=== PATIENT | female | born 1950 | race Asian ===

== ENCOUNTER 2024-05-08 10:57 | Inpatient (IN) | payer OTHER, MEDICAID ==
[~2024-05-08] VITALS: Ht 160 cm; Wt 57.3 kg
[~2024-05-08 10:57] MED LIST: AMLO-257 PO; ATOR10TA PO; ATOR10TA69 PO; CLON1PAT13 TD; DIVA-112 PO; DIVA-153 PO; HALO10TA21 PO; HALO5VIA16 IM; LITH300C3 PO; LURA60TA PO; OLAN5TAB30 PO; RISP3TAB35 PO
[2024-05-08] MEDS ORDERED: LORazepam 2 MG TABLET PO PRN (17:00)
[2024-05-08] MEDS ORDERED: ZOLPIDEM TARTRATE 10 MG TABLET PO PRN (17:00)
[2024-05-08 23:43] VITALS: BP 150/77; PULSE 88; RESP 18; TEMP 98.3; O2SAT 97
[2024-05-09] MEDS ORDERED: OMEPRAZOLE 20 MG CAPSULE PO PRN (00:30)
[2024-05-09] MEDS ORDERED: IBUPROFEN 600 MG TABLET PO PRN (00:30)
[2024-05-09] MEDS ORDERED: MAGNESIUM HYDROXIDE SUSPENSION 30 ML UDCUP PO PRN ×2 (00:30→09:15)
[2024-05-09] MEDS ORDERED: BENZOCAINE/MENTHOL [CEPACOL] LOZENGE PO PRN (00:30)
[2024-05-09] MEDS ORDERED: LOPERAMIDE HCL 2 MG CAPSULE PO PRN (00:30)
[2024-05-09] MEDS ORDERED: ONDANSETRON 4 MG TABLET PO PRN (00:30)
[2024-05-09] MEDS ORDERED: BACITRACIN 28 GM OINTMENT TP PRN (00:30)
[2024-05-09] MEDS ORDERED: CloNIDine HCL 0.1 MG TABLET PO PRN (00:30)
[2024-05-09] MEDS ORDERED: ALBUTEROL SULFATE HFA 90 MCG/PUFF 8 GM INHALER IH PRN (00:30)
[2024-05-09] MEDS ORDERED: DOCUSATE SODIUM 100 MG CAPSULE PO PRN (00:30)
[2024-05-09] MEDS ORDERED: MAG HYDROX/ALUMINUM HYD/SIMETH ES 30 ML SUSPENSION UDCUP PO PRN ×2 (00:30→09:15)
[2024-05-09 07:43] LABS: BASOPHILS % (AUTO) 0.9 % (0.0-2.0); EOSINOPHILS % (AUTO) 2.4 % (1.0-6.0); HEMATOCRIT 37.1 % (36-46); HEMOGLOBIN 12.2 g/dL (12.0-16.0); LYMPHOCYTES % (AUTO) 38.9 % (22.0-44.0); MEAN CORPUSCULAR HEMOGLOBIN 32.7 pg (26.0-34.0); MEAN CORPUSCULAR HGB CONC 32.8 G/dL (31.0-37.0); MEAN CORPUSCULAR VOLUME 100 fL (80-100); MONOCYTES # (AUTO) 0.4 K/uL (0.1-1.0); MONOCYTES % (AUTO) 5.7 % (2.0-9.0); NEUTROPHILS # (AUTO) 4.1 K/uL (1.8-7.7); NEUTROPHILS % (AUTO) 52.1 % (40.0-70.0); PLATELET COUNT (AUTO) 137 K/uL (150-450); RED BLOOD CELL COUNT(AUTO) 3.72 MIL/uL (4.00-5.20); RED CELL DISTRIBUTION WIDTH 15.8 % (11.5-14.5); WHITE BLOOD COUNT (AUTO) 7.8 K/uL (4.5-11.0)
[2024-05-09 07:50] LABS: CALCIUM, TOTAL 9.1 mg/dL (8.8-10.5); CREATININE 1.65 mg/dL (0.60-1.30); POTASSIUM 4.1 mmol/L (3.5-5.1)
[2024-05-09 07:59] LABS: HEMOGLOBIN A1C 5.6 % (3.8-5.6)
[2024-05-09 08:04] LABS: ALBUMIN 2.9 g/dL (3.4-5.0); BILIRUBIN,TOTAL 0.4 mg/dL (0.1-1.0); CHOL/HDL RATIO 2.4 (3.9-5.7); THYROID STIMULATING HORMONE 1.37 uIU/mL (0.36-3.74); TOTAL PROTEIN, SERUM 7.1 g/dL (6.4-8.2)
[2024-05-09] MEDS ORDERED: BREXPIPRAZOLE 0.25 MG TABLET PO PRN (09:15)
[2024-05-09] MEDS ORDERED: PROMETHAZINE HCL 25 MG TABLET PO PRN (09:15)
[2024-05-09] MEDS ORDERED: HydrOXYzine PAMOATE 50 MG CAPSULE PO PRN (09:15)
[2024-05-09] MEDS ORDERED: GuaiFENesin/D-METHORPHAN [SUGAR-FREE] 200-20MG/10 ML SYRUP UDCUP PO PRN (09:15)
[2024-05-09] MEDS: AmLODIPine BESYLATE 5 MG TABLET PO SCH (10:33)
[2024-05-09] MEDS: CEPHALEXIN MONOHYDRATE 500 MG CAPSULE PO SCH (10:33)
[2024-05-09 14:56] VITALS: BP 121/70; PULSE 90; RESP 17; TEMP 97.7; O2SAT 98
[2024-05-09] MEDS: THIAMINE 100 MG TABLET PO SCH (18:19)
[2024-05-09] MEDS: MELATONIN 5 MG TABLET PO SCH (21:12)
[2024-05-09] MEDS: BREXPIPRAZOLE 0.25 MG TABLET PO SCH (21:12)
[2024-05-09 23:04] VITALS: BP 124/66; PULSE 87; RESP 17; TEMP 96.9; O2SAT 96
[2024-05-10 07:45] LABS: CHOL/HDL RATIO 2.4 (3.9-5.7); FREE T4 (FREE THYROXINE) 1.43 ng/dL (0.76-1.46); THYROID STIMULATING HORMONE 1.99 uIU/mL (0.36-3.74)
[2024-05-10] MEDS: FOLIC ACID 1 MG TABLET PO SCH (08:55)
[2024-05-10] MEDS: MULTIVITAMINS WITH MINERALS, THERAPEUTIC TABLET PO SCH (08:55)
[2024-05-10 10:12] VITALS: RESP 18
[2024-05-10 16:34] VITALS: BP 124/69; PULSE 93; RESP 18
[2024-05-10 22:23] VITALS: RESP 18; TEMP 96.1
[2024-05-11 11:29] VITALS: BP 127/74; PULSE 81; RESP 17; TEMP 97.7; O2SAT 98
[2024-05-11 23:22] VITALS: BP 151/77; PULSE 87; RESP 18; TEMP 98.2; O2SAT 97
[2024-05-12] MEDS: ZOLPIDEM TARTRATE 10 MG TABLET PO PRN (00:04)
[2024-05-12] MEDS: OLANZapine 5 MG RAPDIS TABLET PO PRN (00:04)
[2024-05-12 09:37] VITALS: BP 127/43; PULSE 75; RESP 18; TEMP 97.4; O2SAT 99
[2024-05-12 21:13] VITALS: BP 132/84; PULSE 84; RESP 18; TEMP 97.4; O2SAT 96
[2024-05-13 10:37] VITALS: BP 139/76; PULSE 81; RESP 17; TEMP 97.9; O2SAT 100
[2024-05-13 22:03] VITALS: BP 136/83; PULSE 100; RESP 18; TEMP 97.6; O2SAT 100
[2024-05-14 08:45] VITALS: BP 104/65; PULSE 79; RESP 17; TEMP 97.8; O2SAT 98
[2024-05-14 23:00] VITALS: RESP 18
[2024-05-15 16:18] VITALS: BP 141/73; PULSE 86; RESP 18; TEMP 97.1
[2024-05-15] MEDS: HALOPERIDOL LACTATE 5 MG/ML VIAL IM PRN (17:00)
[2024-05-15] MEDS: BREXPIPRAZOLE 0.25 MG TABLET PO SCH (17:00)
[2024-05-15] MEDS: VALPROIC ACID 250 MG/5 ML SOLUTION UDCUP PO SCH (21:00)
[2024-05-15 23:25] VITALS: BP 133/84; PULSE 82; RESP 18; TEMP 97.1; O2SAT 99
[2024-05-16 08:55] VITALS: RESP 18; TEMP 97
[2024-05-16] MEDS: ACETAMINOPHEN 325 MG TABLET PO PRN (12:23)
[2024-05-16] MEDS ORDERED: OLANZapine 2.5 MG TABLET PO PRN (14:45)
[2024-05-16] MEDS: OLANZapine 2.5 MG TABLET PO SCH (16:01)
[2024-05-16] MEDS: VALPROIC ACID 250 MG/5 ML SOLUTION UDCUP PO SCH (16:01)
[2024-05-16 21:41] VITALS: RESP 18
[2024-05-17 08:41] VITALS: BP 144/81; PULSE 81; RESP 18; TEMP 97.7; O2SAT 99
[2024-05-17] MEDS ORDERED: HALOPERIDOL LACTATE 5 MG/ML VIAL IM PRN (12:00)
[2024-05-17 17:50] VITALS: BP 137/77; PULSE 95; RESP 17; O2SAT 100
[2024-05-17] MEDS: MEMANTINE HCL 5 MG TABLET PO SCH (17:53)
[2024-05-17 21:19] VITALS: BP 143/89; PULSE 92; RESP 18; TEMP 97.8; O2SAT 100
[2024-05-17] MEDS: HALOPERIDOL 5 MG TABLET PO SCH (21:48)
[2024-05-17] MEDS: DONEPEZIL HCL 10 MG TABLET PO SCH (21:48)
[2024-05-18 10:54] VITALS: BP 137/80; PULSE 96; RESP 18; TEMP 97.3; O2SAT 98
[2024-05-18 17:50] VITALS: BP 138/80; PULSE 93; RESP 17; O2SAT 98
[2024-05-18 22:12] VITALS: RESP 20
[2024-05-19 12:54] VITALS: BP 128/57; PULSE 81; RESP 16; TEMP 98.1; O2SAT 96
[2024-05-19] MEDS: VALPROIC ACID 250 MG/5 ML SOLUTION UDCUP PO SCH (21:00)
[2024-05-19 21:46] VITALS: RESP 18
[2024-05-19] MEDS: LORazepam 2 MG TABLET PO PRN (22:14)
[2024-05-20 10:14] VITALS: BP 124/73; PULSE 109; RESP 17; TEMP 97; O2SAT 96
[2024-05-20 21:06] VITALS: BP 123/85; PULSE 93; RESP 18; TEMP 98.2; O2SAT 99
[2024-05-21 17:00] VITALS: BP 110/67; PULSE 82; RESP 18; TEMP 97; O2SAT 95
[2024-05-21 20:14] VITALS: BP 129/77; PULSE 89; RESP 18; TEMP 98; O2SAT 97
[2024-05-21] MEDS: HALOPERIDOL 10 MG TABLET PO SCH (21:34)
[2024-05-22 10:28] VITALS: BP 119/63; PULSE 63; RESP 18; TEMP 97.1; O2SAT 97
[2024-05-22 21:23] VITALS: BP 118/67; PULSE 75; RESP 16; TEMP 97.8; O2SAT 97
[2024-05-22] MEDS: HALOPERIDOL 5 MG TABLET PO SCH (21:27)
[2024-05-23 08:30] VITALS: BP 123/71; PULSE 87; RESP 18; TEMP 98.1; O2SAT 95
[2024-05-23] MEDS: HALOPERIDOL 10 MG TABLET PO SCH (21:00)
[2024-05-23 21:31] VITALS: BP 137/78; PULSE 103; RESP 18; TEMP 97.3; O2SAT 97
[2024-05-23] MEDS: HALOPERIDOL LACTATE 5 MG/ML VIAL IM PRN (21:32)
[2024-05-24 11:17] VITALS: RESP 18
[2024-05-24 21:28] VITALS: BP 127/72; PULSE 98; RESP 18; TEMP 97.9; O2SAT 96
[2024-05-25 09:59] VITALS: BP 136/73; PULSE 82; RESP 18; TEMP 97.7; O2SAT 98
[2024-05-25 21:08] VITALS: BP 124/71; PULSE 84; RESP 19; TEMP 97.6; O2SAT 98
[2024-05-26 08:30] VITALS: BP 123/69; PULSE 82; RESP 16; TEMP 97.3; O2SAT 99
[2024-05-26 20:24] VITALS: BP 145/80; RESP 17; TEMP 98; O2SAT 98
[2024-05-27 09:00] VITALS: BP 113/60; PULSE 67; RESP 19; TEMP 98.1; O2SAT 100
[2024-05-27 21:00] VITALS: BP 143/71; PULSE 83; RESP 19; TEMP 97; O2SAT 97
[2024-05-28] MEDS: HALOPERIDOL 5 MG TABLET PO SCH (13:00)
[2024-05-28] MEDS ORDERED: HALOPERIDOL LACTATE 5 MG/ML VIAL IM PRN (13:00)
[2024-05-28 13:05] VITALS: BP 106/63; PULSE 84; RESP 18; TEMP 97.7; O2SAT 99
[2024-05-28 21:48] VITALS: BP 113/63; PULSE 76; RESP 18; TEMP 97.5; O2SAT 100
[2024-05-29 09:18] VITALS: BP 120/77; PULSE 74; RESP 18; TEMP 98; O2SAT 100
[2024-05-29 23:29] VITALS: RESP 18
[2024-05-30 10:40] VITALS: BP 132/79; PULSE 83; RESP 16; TEMP 98; O2SAT 96
[2024-05-30 23:00] VITALS: BP 146/76; PULSE 80; RESP 16; TEMP 98; O2SAT 97
[2024-05-31 09:07] VITALS: BP 109/64; PULSE 71; RESP 17; TEMP 97.8; O2SAT 100
[2024-05-31 22:23] VITALS: BP 117/61; PULSE 59; RESP 18; TEMP 97.5; O2SAT 99
[2024-06-01 09:04] VITALS: BP 111/76; PULSE 75; RESP 18; TEMP 98; O2SAT 99
[2024-06-01 20:49] VITALS: BP 106/61; PULSE 69; RESP 19; TEMP 97.4; O2SAT 100
[2024-06-02 08:30] VITALS: BP 116/65; PULSE 86; RESP 18; TEMP 97.7; O2SAT 98
[2024-06-02 20:36] VITALS: BP 120/78; PULSE 82; RESP 19; TEMP 97.2; O2SAT 98
[2024-06-03 09:28] VITALS: BP 113/68; PULSE 68; RESP 16; TEMP 93.4; O2SAT 99
[2024-06-03 20:47] VITALS: BP 139/75; PULSE 74; RESP 18; TEMP 97.8; O2SAT 97
[2024-06-04 09:37] VITALS: BP 125/64; PULSE 64; RESP 18; TEMP 97; O2SAT 100
[2024-06-04 20:51] VITALS: BP 121/78; PULSE 80; RESP 18; TEMP 97.7; O2SAT 100
[2024-06-05 11:29] VITALS: BP 131/87; PULSE 74; RESP 19; TEMP 97.9; O2SAT 100
[2024-06-05] MEDS: HALOPERIDOL 1 MG TABLET PO SCH (13:00)
[2024-06-05] MEDS: HALOPERIDOL LACTATE 5 MG/ML VIAL IM PRN (13:59)
[2024-06-05 20:30] VITALS: RESP 18; TEMP 97.7
[2024-06-06 08:00] VITALS: BP 115/64; PULSE 70; RESP 18; TEMP 97.5
[2024-06-06 20:54] VITALS: BP 129/64; PULSE 67; RESP 18; TEMP 98
[2024-06-07 08:30] VITALS: BP 135/69; PULSE 82; RESP 18; TEMP 97; O2SAT 98
[2024-06-07 16:41] VITALS: BP 116/57; PULSE 74; RESP 18
[2024-06-07 21:29] VITALS: RESP 18
[2024-06-08 08:02] VITALS: RESP 18
[2024-06-08 18:00] VITALS: BP 121/73; PULSE 63; RESP 18; TEMP 98.1
[2024-06-08 21:10] VITALS: RESP 18
[2024-06-09 08:02] VITALS: RESP 18
[2024-06-09 20:06] VITALS: RESP 18
[2024-06-10 09:52] VITALS: BP 122/67; PULSE 83; RESP 20; TEMP 96.3; O2SAT 99
[2024-06-10 20:21] VITALS: BP 123/71; PULSE 85; RESP 18; TEMP 97.9
[2024-06-11 08:30] VITALS: BP 123/68; PULSE 89; RESP 17; TEMP 97.3; O2SAT 100
[2024-06-11] MEDS: TUBERCULIN, PURIFIED PROTEIN DERIVATIVE 5 TU/0.1 ML SYRINGE ID ONE (12:54)
[2024-06-11 21:03] VITALS: TEMP 97.7
[2024-06-12 09:33] VITALS: BP 126/71; PULSE 80; RESP 17; TEMP 97.2; O2SAT 99
[2024-06-12 21:20] VITALS: PULSE 82; RESP 18; TEMP 97.5
[2024-06-13 09:07] VITALS: BP 120/72; PULSE 84; RESP 18; TEMP 97.7; O2SAT 98
[2024-06-13 20:30] VITALS: BP 122/66; PULSE 81; RESP 18; TEMP 98.3
[2024-06-14 08:52] VITALS: BP 114/71; PULSE 90; RESP 18; TEMP 97.9; O2SAT 97
[2024-06-14 16:55] VITALS: BP 126/80; PULSE 89; RESP 18; O2SAT 98
[2024-06-14 20:38] VITALS: BP 122/62; PULSE 63; RESP 18; TEMP 97.5; O2SAT 98
[2024-06-15 09:46] VITALS: BP 130/76; PULSE 78; RESP 17; TEMP 98.1; O2SAT 98
[2024-06-15 09:51] VITALS: BP 130/76; PULSE 75; RESP 18; TEMP 98.1; O2SAT 98
[2024-06-15 21:06] VITALS: BP 123/72; PULSE 85; RESP 17; TEMP 97.6; O2SAT 97
[2024-06-16 09:51] VITALS: BP 101/70; PULSE 100; RESP 19; TEMP 97; O2SAT 96
[2024-06-16 20:31] VITALS: BP 124/61; PULSE 83; RESP 20; TEMP 97.9; O2SAT 98
[2024-06-17 08:46] VITALS: BP 119/67; PULSE 82; RESP 18; TEMP 97.6; O2SAT 100
[2024-06-17 21:08] VITALS: BP 131/68; PULSE 78; RESP 18; TEMP 97.7; O2SAT 100
[2024-06-18 12:42] VITALS: BP 131/68; PULSE 78; RESP 17; TEMP 97.7; O2SAT 96
[2024-06-18 21:10] VITALS: BP 126/63; PULSE 80; RESP 18; TEMP 97.1; O2SAT 98
[2024-06-19 10:05] VITALS: BP 115/94; PULSE 74; RESP 18; TEMP 97.5; O2SAT 98
[2024-06-19 21:01] VITALS: BP 122/67; PULSE 81; RESP 18; TEMP 98.4; O2SAT 99
[2024-06-20 09:48] VITALS: BP 130/89; PULSE 78; RESP 16; TEMP 98; O2SAT 96
[2024-06-20 16:39] VITALS: BP 133/69; PULSE 77; RESP 18; O2SAT 97
[2024-06-20 21:29] VITALS: BP 130/74; PULSE 86; RESP 17; TEMP 97.7; O2SAT 97
[2024-06-21 09:59] VITALS: BP 123/67; PULSE 73; RESP 17; TEMP 97.3; O2SAT 100
[2024-06-21 16:05] VITALS: BP 128/75; PULSE 79; RESP 18; O2SAT 97
[2024-06-21 20:36] VITALS: BP 143/66; PULSE 75; RESP 18; TEMP 97.7; O2SAT 97
[2024-06-22 10:40] VITALS: BP 125/75; PULSE 78; RESP 18; TEMP 97.8; O2SAT 98
[2024-06-22 16:25] VITALS: BP 129/65; PULSE 69; RESP 18; O2SAT 97
[2024-06-22 22:12] VITALS: BP 145/75; PULSE 81; RESP 19; TEMP 98.1; O2SAT 98
[2024-06-23 08:05] VITALS: BP 110/64; PULSE 60; RESP 18; TEMP 97.4
[2024-06-23 20:40] VITALS: BP 121/77; PULSE 76; RESP 18; TEMP 98.1; O2SAT 100
[2024-06-24 08:31] VITALS: BP 119/75; PULSE 78; RESP 19; TEMP 97.9; O2SAT 97
[2024-06-24 21:12] VITALS: BP 139/75; PULSE 86; RESP 18; TEMP 98; O2SAT 98
[2024-06-25 08:00] VITALS: BP 139/81; PULSE 90; RESP 20; TEMP 98; O2SAT 97
[2024-06-25 21:40] VITALS: BP 119/71; PULSE 90; RESP 18; TEMP 97.5; O2SAT 98
[2024-06-26 08:00] VITALS: BP 131/83; PULSE 86; RESP 17; TEMP 97.6; O2SAT 96
[2024-06-26 20:30] VITALS: BP 130/74; PULSE 86; RESP 17; TEMP 97.7; O2SAT 97
[2024-06-27 08:00] VITALS: BP 111/67; PULSE 80; RESP 18; TEMP 97.7; O2SAT 98
[2024-06-27 20:31] VITALS: BP 110/65; PULSE 92; RESP 18; TEMP 97.9; O2SAT 97
[2024-06-28 13:27] VITALS: BP 112/59; PULSE 84; RESP 18; O2SAT 97
[2024-06-28 21:50] VITALS: BP 131/69; PULSE 87; RESP 18; TEMP 97.8; O2SAT 98
[2024-06-29 10:33] VITALS: BP 101/58; PULSE 78; RESP 18; TEMP 97.5; O2SAT 97
[2024-06-29 20:59] VITALS: BP 116/66; PULSE 81; RESP 20; TEMP 97.8; O2SAT 98
[2024-06-30 08:57] VITALS: BP 125/76; PULSE 97; RESP 18; TEMP 97.2; O2SAT 97
[2024-06-30 23:07] VITALS: BP 125/60; PULSE 85; RESP 18; TEMP 77.8; O2SAT 98
[2024-07-01 09:31] VITALS: BP 102/63; PULSE 86; RESP 19; TEMP 98; O2SAT 98
[2024-07-01 16:45] VITALS: BP 111/62; PULSE 86; RESP 17; TEMP 98.2; O2SAT 96
[2024-07-01 21:46] VITALS: BP 107/53; PULSE 79; RESP 18; TEMP 97.3; O2SAT 97
[2024-07-02 09:00] VITALS: BP 132/78; PULSE 84; RESP 17; TEMP 97.1; O2SAT 97
[2024-07-02] MEDS: HALOPERIDOL 1 MG TABLET PO SCH (17:02)
[2024-07-02 22:10] VITALS: RESP 18
[2024-07-03 08:00] VITALS: BP 124/69; PULSE 82; RESP 18; TEMP 96; O2SAT 95
[2024-07-03 16:34] VITALS: BP 129/71; PULSE 89; RESP 20
[2024-07-03 20:00] VITALS: BP 111/56; PULSE 77; RESP 18; TEMP 98; O2SAT 96
[2024-07-03 21:20] VITALS: BP 128/73; PULSE 84; RESP 18; TEMP 98.1; O2SAT 96
[2024-07-04 10:50] VITALS: BP 142/71; PULSE 87; RESP 20; TEMP 97.8; O2SAT 98
[2024-07-04 16:49] VITALS: BP 135/65; PULSE 89; RESP 18; O2SAT 97
[2024-07-04 20:45] VITALS: BP 109/77; PULSE 73; RESP 18; O2SAT 98
[2024-07-05 11:24] VITALS: BP 111/63; PULSE 75; RESP 18; TEMP 97; O2SAT 98
[2024-07-05 16:25] VITALS: BP 125/69; PULSE 89; RESP 18; O2SAT 97
[2024-07-05 21:25] VITALS: BP 114/72; PULSE 90; RESP 18; TEMP 97.3; O2SAT 95
[2024-07-06 10:23] VITALS: BP 116/70; PULSE 74; RESP 17; O2SAT 97
[2024-07-06 16:57] VITALS: BP 114/72; PULSE 81; RESP 17; O2SAT 98
[2024-07-06 20:27] VITALS: BP 125/68; PULSE 79; RESP 17; TEMP 97.5; O2SAT 96
[2024-07-07] VITALS (9 sets, daily range): BP systolic 91–129; BP diastolic 54–82; PULSE 55–88; RESP 17–18; TEMP 97.4–98.1; O2SAT 96–100
[2024-07-07] MEDS: LOPERAMIDE HCL 2 MG CAPSULE PO PRN (14:39)
[2024-07-08 08:37] VITALS: BP 131/77; PULSE 89; RESP 17; TEMP 97.6; O2SAT 96
[2024-07-08 09:13] VITALS: BP 131/77; PULSE 89; RESP 17; TEMP 97.6; O2SAT 96
[2024-07-08 20:26] VITALS: BP 102/60; PULSE 73; RESP 18; TEMP 97.9; O2SAT 97
[2024-07-08 20:29] VITALS: BP 102/60; PULSE 73; RESP 18; TEMP 97.9; O2SAT 97
[2024-07-09 09:48] VITALS: BP 111/66; PULSE 74; RESP 16; TEMP 98; O2SAT 95
[2024-07-09 21:12] VITALS: BP 104/59; PULSE 95; RESP 18; TEMP 98.2; O2SAT 95
[2024-07-09 21:15] VITALS: BP 104/59; PULSE 95; RESP 18; TEMP 98.2; O2SAT 95
[2024-07-10 09:16] VITALS: BP 121/66; PULSE 74; RESP 17; TEMP 98; O2SAT 98
[2024-07-10 10:02] VITALS: BP 121/66; PULSE 74; RESP 17; TEMP 96.6; O2SAT 98
[2024-07-10 21:04] VITALS: BP 110/58; PULSE 73; RESP 18; TEMP 97.4; O2SAT 97
[2024-07-11 13:40] VITALS: BP 119/71; PULSE 77; PULSE 98; RESP 18; TEMP 98.8; O2SAT 98; O2SAT 99
[2024-07-11 22:02] VITALS: BP 126/83; PULSE 90; RESP 18; TEMP 98; O2SAT 97
[2024-07-11 22:04] VITALS: BP 126/83; PULSE 98; RESP 18; TEMP 98.8; O2SAT 98
[2024-07-12 10:27] VITALS: BP 116/65; PULSE 74; RESP 18; TEMP 97.9; O2SAT 96
[2024-07-12 18:15] VITALS: BP 114/72; PULSE 76; RESP 18; O2SAT 98
[2024-07-12 20:42] VITALS: BP 113/65; PULSE 77; RESP 18; TEMP 97.1; O2SAT 95
[2024-07-12 23:28] VITALS: BP 113/65; PULSE 77; RESP 18; TEMP 97.1; O2SAT 96
[2024-07-13 11:18] VITALS: BP 142/87; PULSE 87; RESP 16; TEMP 98.1; O2SAT 95
[2024-07-13 20:10] VITALS: BP 102/56; PULSE 79; RESP 18; TEMP 97.1; O2SAT 98
[2024-07-14 13:19] VITALS: BP 115/63; PULSE 83; RESP 18; TEMP 97.2; O2SAT 95
[2024-07-14 20:56] VITALS: BP 115/57; PULSE 79; RESP 18; TEMP 97.9; O2SAT 99
[2024-07-15 10:58] VITALS: BP 109/62; PULSE 81; RESP 18; TEMP 97.3; O2SAT 97
[2024-07-15 22:01] VITALS: BP 106/58; PULSE 78; RESP 18; TEMP 97.7; O2SAT 98
[2024-07-16 08:00] VITALS: BP 96/45; PULSE 82; RESP 19; TEMP 97.2; O2SAT 96
[2024-07-17 00:19] VITALS: BP 118/65; PULSE 83; RESP 16; TEMP 98.6; O2SAT 95
[2024-07-17 11:32] VITALS: BP 118/68; PULSE 77; RESP 18; TEMP 98.2; O2SAT 94
[2024-07-17 21:08] VITALS: BP 109/59; PULSE 79; RESP 18; TEMP 97
[2024-07-18 10:41] VITALS: BP 143/80; PULSE 82; RESP 18; TEMP 97; O2SAT 98
[2024-07-18 21:19] VITALS: BP 118/55; PULSE 100; RESP 20; TEMP 97.8
[2024-07-19 09:31] VITALS: BP 114/67; PULSE 74; RESP 16; TEMP 97.7
[2024-07-19 16:40] VITALS: BP 106/62; PULSE 66
[2024-07-19 20:35] VITALS: BP 99/60; PULSE 79; RESP 17; TEMP 97.9
[2024-07-20 10:32] VITALS: BP 148/74; PULSE 86; RESP 16; TEMP 97.1; O2SAT 97
[2024-07-20 21:26] VITALS: BP 112/69; PULSE 85; RESP 18; TEMP 97.4; O2SAT 99
[2024-07-21 09:34] VITALS: BP 123/95; PULSE 76; RESP 16; TEMP 97.7; O2SAT 98
[2024-07-21 17:27] VITALS: BP 126/83; PULSE 84; RESP 17; TEMP 98.1; O2SAT 97
[2024-07-21 20:27] VITALS: BP 117/73; PULSE 80; RESP 18; TEMP 97.8
[2024-07-21] MEDS: HALOPERIDOL 1 MG TABLET PO SCH (20:44)
[2024-07-22 10:12] VITALS: BP 98/69; PULSE 100; RESP 18; TEMP 97.8; O2SAT 100
[2024-07-22 16:11] VITALS: BP 121/70; PULSE 95; RESP 17; O2SAT 97
[2024-07-22 20:54] VITALS: BP 135/81; PULSE 98; RESP 18; TEMP 98; O2SAT 98
[2024-07-23] MEDS: HALOPERIDOL 1 MG TABLET PO SCH (08:22)
[2024-07-23 08:59] VITALS: BP 85/43; PULSE 83; RESP 18; TEMP 97; O2SAT 95
[2024-07-23 10:13] VITALS: BP 120/68; PULSE 85
[2024-07-23 21:51] VITALS: BP 132/69; PULSE 89; RESP 18; TEMP 97.9; O2SAT 100
[2024-07-24 08:49] VITALS: BP 111/60; PULSE 70; RESP 17; TEMP 97.5; O2SAT 98
[2024-07-24 20:06] VITALS: BP 110/66; PULSE 83; RESP 18; TEMP 96.8; O2SAT 97
[2024-07-25 09:05] VITALS: BP 129/77; PULSE 86; RESP 18; TEMP 97.4; O2SAT 98
[2024-07-25 20:15] VITALS: BP 100/64; PULSE 84; RESP 17; TEMP 97.7; O2SAT 98
[2024-07-26 09:00] VITALS: BP 95/63; PULSE 81; RESP 17; TEMP 97.1; O2SAT 100
[2024-07-26] MEDS: AMANTADINE HCL 100 MG CAPSULE PO SCH (09:38)
[2024-07-26 18:10] VITALS: BP 114/72; PULSE 65; RESP 18
[2024-07-26 20:30] VITALS: BP 116/72; PULSE 74; RESP 19; TEMP 97.4; O2SAT 98
[2024-07-27 09:22] VITALS: BP 126/74; PULSE 83; RESP 16; TEMP 97; O2SAT 98
[2024-07-27 16:01] VITALS: BP 106/65; PULSE 79; RESP 18; O2SAT 97
[2024-07-27 22:10] VITALS: BP 107/62; PULSE 71; RESP 17; TEMP 97.1; O2SAT 96
[2024-07-28 10:18] VITALS: BP 117/76; PULSE 85; RESP 18; TEMP 97.6; O2SAT 98
[2024-07-28] MEDS: HALOPERIDOL 1 MG TABLET PO SCH (17:04)
[2024-07-28 21:31] VITALS: BP 109/76; PULSE 91; RESP 18; TEMP 98.3; O2SAT 98
[2024-07-29 10:18] VITALS: BP 111/68; PULSE 96; RESP 18; TEMP 97.9; O2SAT 97
[2024-07-29 21:44] VITALS: BP 129/79; PULSE 86; RESP 18; TEMP 98.1; O2SAT 99
[2024-07-30 08:34] VITALS: BP 148/78; PULSE 88; RESP 17; TEMP 97.8; O2SAT 95
[2024-07-30 22:07] VITALS: BP 100/58; PULSE 78; RESP 18; TEMP 97.5; O2SAT 97
[2024-07-31 08:21] VITALS: BP 118/67; PULSE 78; RESP 18; TEMP 97.4; O2SAT 98
[2024-07-31] MEDS: HALOPERIDOL 1 MG TABLET PO SCH (20:58)
[2024-08-01 09:00] VITALS: BP 108/59; PULSE 72; RESP 18; TEMP 97.5; O2SAT 98
[2024-08-01 21:16] VITALS: BP 111/58; PULSE 77; RESP 18; TEMP 98.4; O2SAT 97
[2024-08-02 10:48] VITALS: BP 122/71; PULSE 104; RESP 18; TEMP 97.7; O2SAT 98
[2024-08-02 22:06] VITALS: BP 115/70; PULSE 87; RESP 18; TEMP 97.9; O2SAT 96
[2024-08-03] VITALS (8 sets, daily range): BP systolic 102–150; BP diastolic 71–84; PULSE 96–113; RESP 12–20; TEMP 97.4–98.9; O2SAT 95–98
[2024-08-03 10:33] LABS: EOSINOPHILS % (AUTO) 0 % (1.0-6.0); HEMATOCRIT 37.9 % (36-46); HEMOGLOBIN 12.6 g/dL (12.0-16.0); LYMPHOCYTES # (AUTO) 2.1 K/uL (1.0-4.8); LYMPHOCYTES % (AUTO) 21.9 % (22.0-44.0); MEAN CORPUSCULAR HEMOGLOBIN 31.1 pg (26.0-34.0); MEAN CORPUSCULAR HGB CONC 33.2 G/dL (31.0-37.0); MEAN CORPUSCULAR VOLUME 94 fL (80-100); MONOCYTES # (AUTO) 0.9 K/uL (0.1-1.0); MONOCYTES % (AUTO) 9.5 % (2.0-9.0); NEUTROPHILS # (AUTO) 6.6 K/uL (1.8-7.7); NEUTROPHILS % (AUTO) 67.6 % (40.0-70.0); PLATELET COUNT (AUTO) 185 K/uL (150-450); RED BLOOD CELL COUNT(AUTO) 4.04 MIL/uL (4.00-5.20); RED CELL DISTRIBUTION WIDTH 14.2 % (11.5-14.5); WHITE BLOOD COUNT (AUTO) 9.8 K/uL (4.5-11.0)
[2024-08-03 10:48] LABS: CALCIUM, TOTAL 8.9 mg/dL (8.8-10.5); CREATININE 1.37 mg/dL (0.60-1.30)
[2024-08-03 10:50] LABS: ALBUMIN 3.5 g/dL (3.4-5.0); BILIRUBIN,TOTAL 0.5 mg/dL (0.1-1.0); MAGNESIUM 2.4 mg/dL (1.80-2.40); PHOSPHORUS 3.5 mg/dL (2.5-4.9); TOTAL PROTEIN, SERUM 7.4 g/dL (6.4-8.2)
[2024-08-03] MEDS ORDERED: AMMONIA 1 EA AMP IH ONE (11:01)
[2024-08-03 19:59] LABS: APPEARANCE,URINE CLEAR (CLEAR); BILIRUBIN,URINE NEGATIVE (NEGATIVE); COLOR,URINE YELLOW (YELLOW); GLUCOSE, URINE (UA) NEGATIVE (NEGATIVE); KETONES,URINE NEGATIVE (NEGATIVE); LEUKOCYTE ESTERASE ,URINE MODERATE (NEGATIVE); NITRATE,URINE NEGATIVE (NEGATIVE); OCCULT BLOOD,URINE NEGATIVE (NEGATIVE); PROTEIN,URINE TRACE mg/dL (NEGATIVE); SPECIFIC GRAVITIY, URINE 1.013 (1.003-1.030); UROBILINOGEN,URINE <=1.0 mg/dL (<=1.0)
[2024-08-03 20:07] LABS: BACTERIA,URINE Few /HPF (None Seen); RBC,URINE 0-2 /HPF (0-2); SQUAMOUS EPITHELIAL CELL,UR Few /LPF (None Seen)
[2024-08-03 21:34] LABS: PATHOLOGY REVIEW, DIFF N
[2024-08-04 09:32] VITALS: BP 124/76; PULSE 85; RESP 18; TEMP 97.2; O2SAT 98
[2024-08-04 21:50] VITALS: RESP 18; TEMP 98.1
[2024-08-05] MEDS: HALOPERIDOL 1 MG TABLET PO SCH (09:47)
[2024-08-05 10:40] VITALS: BP 125/71; PULSE 82; RESP 18; TEMP 97.8; O2SAT 98
[2024-08-05] MEDS: HALOPERIDOL LACTATE 5 MG/ML VIAL IM PRN (18:25)
[2024-08-05 20:09] VITALS: RESP 18
[2024-08-06 08:51] VITALS: BP 143/75; PULSE 77; RESP 18; TEMP 97.1; O2SAT 96
[2024-08-06 17:15] VITALS: BP 133/85; PULSE 82; RESP 18
[2024-08-06 22:47] VITALS: BP 134/76; PULSE 86; RESP 18; TEMP 96.9; O2SAT 98
[2024-08-07 08:40] VITALS: BP 126/78; PULSE 82; RESP 17; TEMP 96.8; O2SAT 98
[2024-08-07] MEDS: DIVALPROEX SODIUM 250 MG ER TABLET PO SCH (13:00)
[2024-08-07 20:17] VITALS: BP 132/71; PULSE 92; RESP 17; TEMP 98; O2SAT 98
[2024-08-08 11:27] VITALS: BP 112/75; PULSE 91; RESP 16; TEMP 97.8; O2SAT 97
[2024-08-08 21:53] VITALS: RESP 18; O2SAT 99
[2024-08-09 10:22] VITALS: BP 123/81; PULSE 90; RESP 17; TEMP 98.1; O2SAT 96
[2024-08-09 22:44] VITALS: BP 118/66; PULSE 95; RESP 18; TEMP 97.5; O2SAT 97
[2024-08-10 08:37] VITALS: BP 134/74; PULSE 91; RESP 18; TEMP 97.5; O2SAT 97
[2024-08-10] MEDS: HALOPERIDOL LACTATE 5 MG/ML VIAL IM PRN (13:00)
[2024-08-10 20:19] VITALS: BP 132/73; PULSE 92; RESP 18; TEMP 97.6; O2SAT 98
[2024-08-11 08:43] VITALS: BP 125/61; PULSE 85; RESP 17; TEMP 97.7; O2SAT 95
[2024-08-11] MEDS: HALOPERIDOL 1 MG TABLET PO SCH (17:42)
[2024-08-11 20:21] VITALS: BP 105/70; PULSE 62; RESP 18; TEMP 97.9; O2SAT 98
[2024-08-12 08:52] VITALS: BP 112/59; PULSE 75; RESP 18; TEMP 97.5; O2SAT 97
[2024-08-12 09:00] VITALS: BP 112/59; PULSE 75; RESP 18; TEMP 97.5; O2SAT 97
[2024-08-12 21:25] VITALS: BP 124/77; PULSE 77; RESP 18; TEMP 97.1; O2SAT 98
[2024-08-13 11:28] VITALS: BP 118/67; PULSE 89; RESP 18; TEMP 97.5; O2SAT 99
[2024-08-13 20:00] VITALS: BP 147/87; PULSE 90; RESP 18; TEMP 97.5; O2SAT 99
[2024-08-14 13:16] VITALS: BP 122/70; PULSE 72; RESP 18; TEMP 97; O2SAT 98
[2024-08-14 16:35] VITALS: BP 101/69; PULSE 65; RESP 18; O2SAT 96
[2024-08-14 22:06] VITALS: RESP 18
[2024-08-15 09:30] VITALS: BP 102/68; PULSE 63; RESP 18; TEMP 97.3; O2SAT 96
[2024-08-15] MEDS: BENZTROPINE MESYLATE 0.5 MG TABLET PO ONE (10:56)
[2024-08-15] MEDS: BENZTROPINE MESYLATE 0.5 MG TABLET PO SCH (17:47)
[2024-08-15 19:30] VITALS: BP 101/61; PULSE 78; RESP 18; TEMP 97.3; O2SAT 97
[2024-08-16 08:52] VITALS: BP 134/78; PULSE 67; RESP 16; O2SAT 97
[2024-08-16 16:40] VITALS: BP 118/71; PULSE 78; RESP 18; O2SAT 96
[2024-08-16 20:26] VITALS: BP 122/73; PULSE 89; RESP 18; TEMP 97.3; O2SAT 97
[2024-08-17 10:40] VITALS: BP 124/74; PULSE 78; RESP 14; TEMP 97.9; O2SAT 98
[2024-08-17 20:49] VITALS: RESP 17; TEMP 98.1
[2024-08-18 09:00] VITALS: BP 92/58; PULSE 77; RESP 17; TEMP 98; O2SAT 98
[2024-08-18 09:44] VITALS: BP 92/58; PULSE 77; RESP 18; TEMP 97; O2SAT 98
[2024-08-18 16:21] VITALS: BP 109/58; PULSE 72
[2024-08-18 20:58] VITALS: RESP 18
[2024-08-19 08:30] VITALS: BP 142/73; PULSE 72; RESP 16; TEMP 96.9; O2SAT 99
[2024-08-19] MEDS: LORazepam 2 MG/ML VIAL IM ONE (18:29)
[2024-08-19] MEDS: HALOPERIDOL LACTATE 5 MG/ML VIAL IM ONE (18:31)
[2024-08-19] MEDS: DiphenhydrAMINE HCL 50 MG/ML VIAL IM ONE (18:31)
[2024-08-19 21:39] VITALS: BP 133/71; PULSE 79; RESP 18; TEMP 97.5; O2SAT 99
[2024-08-20] MEDS: HALOPERIDOL 1 MG TABLET PO SCH (09:21)
[2024-08-20 09:44] VITALS: BP 120/60; PULSE 78; RESP 19; TEMP 98.2; O2SAT 97
[2024-08-20 18:24] VITALS: BP 111/70; PULSE 70; RESP 18
[2024-08-20 21:56] VITALS: BP 100/56; PULSE 86; RESP 18; TEMP 97.7; O2SAT 96
[2024-08-21 08:39] VITALS: BP 134/71; PULSE 80; RESP 17; TEMP 98.2; O2SAT 97
[2024-08-21 22:29] VITALS: RESP 18
[2024-08-22 10:55] VITALS: RESP 18; TEMP 97
[2024-08-22 22:01] VITALS: RESP 18
[2024-08-23 11:02] VITALS: BP 110/73; PULSE 93; RESP 20; TEMP 97.4
[2024-08-23 16:28] VITALS: BP 108/69; PULSE 89; RESP 18
[2024-08-23 21:53] VITALS: RESP 18
[2024-08-24 08:26] VITALS: RESP 18
[2024-08-24 21:23] VITALS: BP 125/65; PULSE 89; RESP 18; TEMP 97.7
[2024-08-25 09:54] VITALS: BP 118/71; PULSE 81; RESP 18; TEMP 97.5; O2SAT 98
[2024-08-25 20:37] VITALS: BP 131/76; PULSE 66; RESP 18; TEMP 98.2; O2SAT 97
[2024-08-26 09:08] VITALS: BP 138/76; PULSE 89; RESP 16; TEMP 98.4; O2SAT 98
[2024-08-26 21:47] VITALS: RESP 17
[2024-08-27] MEDS: LORazepam 2 MG/ML VIAL IM ONE (07:13)
[2024-08-27] MEDS: DiphenhydrAMINE HCL 50 MG/ML VIAL IM ONE (07:13)
[2024-08-27] MEDS: HALOPERIDOL LACTATE 5 MG/ML VIAL IM ONE (07:17)
[2024-08-27 08:37] VITALS: BP 116/59; PULSE 79; RESP 17; TEMP 97.6; O2SAT 97
[2024-08-27] MEDS: DIVALPROEX SODIUM 250 MG ER TABLET PO SCH (14:40)
[2024-08-27 22:22] VITALS: RESP 18
[2024-08-28 09:12] VITALS: BP 110/60; PULSE 87; RESP 17; TEMP 97; O2SAT 97
[2024-08-28 17:31] VITALS: BP 105/65; PULSE 89; RESP 18; O2SAT 97
[2024-08-28 20:38] VITALS: BP 108/55; PULSE 76; RESP 18; TEMP 97.8; O2SAT 97
[2024-08-29 09:27] VITALS: BP 126/70; PULSE 86; RESP 16; TEMP 97.7; O2SAT 99
[2024-08-29 16:42] VITALS: BP 123/63; PULSE 89; RESP 18; O2SAT 98
[2024-08-29 22:07] VITALS: RESP 18
[2024-08-30 09:17] VITALS: BP 116/70; PULSE 83; RESP 16; TEMP 96.9; O2SAT 99
[2024-08-30 16:43] VITALS: BP 110/69; PULSE 78; RESP 20; O2SAT 98
[2024-08-30 20:27] VITALS: RESP 18
[2024-08-31 08:40] VITALS: BP 114/67; PULSE 86; RESP 17; TEMP 97.4; O2SAT 99
[2024-08-31 17:37] VITALS: BP 101/62; PULSE 77; RESP 17; O2SAT 100
[2024-08-31 20:31] VITALS: RESP 18
[2024-09-01 13:11] VITALS: BP 137/63; PULSE 72; RESP 16; TEMP 97.7; O2SAT 98
[2024-09-01 20:51] VITALS: BP 115/60; PULSE 78; RESP 18; TEMP 97.5; O2SAT 98
[2024-09-02 09:19] VITALS: BP 129/72; PULSE 81; RESP 16; TEMP 97.3; O2SAT 100
[2024-09-02] MEDS: HALOPERIDOL 1 MG TABLET PO SCH (12:39)
[2024-09-02 17:05] VITALS: BP_SYST 102; BP_SYST 145; BP_DIAS 60; BP_DIAS 85; PULSE 73; PULSE 89; RESP 17; TEMP 97.7; O2SAT 99
[2024-09-02 20:24] VITALS: RESP 18
[2024-09-02] MEDS: HALOPERIDOL 2 MG TABLET PO SCH (21:56)
[2024-09-03 08:05] VITALS: BP 113/67; PULSE 76; RESP 16; TEMP 97.7; O2SAT 100
[2024-09-03 20:00] VITALS: RESP 19
[2024-09-04 12:53] VITALS: BP 130/75; PULSE 77; RESP 18; TEMP 97.8
[2024-09-04 16:45] VITALS: BP 128/82; PULSE 89; RESP 20
[2024-09-04 20:00] VITALS: BP 100/68; PULSE 73; RESP 18; TEMP 97.3
[2024-09-05 09:15] VITALS: BP 131/70; PULSE 75; RESP 17; TEMP 97.4
[2024-09-05 21:00] VITALS: RESP 19
[2024-09-06 09:00] VITALS: PULSE 87; RESP 18; TEMP 97.6; O2SAT 98
[2024-09-06 21:25] VITALS: RESP 18
[2024-09-07 08:38] VITALS: BP 143/80; PULSE 85; RESP 19; TEMP 97.8; O2SAT 100
[2024-09-07 20:27] VITALS: RESP 18
[2024-09-08 10:49] VITALS: BP 126/61; PULSE 65; RESP 19; TEMP 97.9; O2SAT 99
[2024-09-08 21:27] VITALS: BP 118/62; PULSE 76; RESP 18; TEMP 96.9; O2SAT 99
[2024-09-09 09:37] VITALS: BP 117/65; PULSE 68; RESP 18; TEMP 97.2; O2SAT 97
[2024-09-09 17:40] VITALS: BP 117/69; PULSE 73; RESP 18; TEMP 97.5; O2SAT 99
[2024-09-09 23:27] VITALS: BP 99/58; PULSE 74; RESP 18; TEMP 97.9; O2SAT 98
[2024-09-10 08:55] VITALS: BP 130/55; PULSE 83; RESP 18; TEMP 97.5; O2SAT 98
[2024-09-10 16:51] VITALS: BP 130/74; PULSE 82; RESP 18; TEMP 97.9; O2SAT 99
[2024-09-10 20:13] VITALS: BP 119/70; PULSE 66; RESP 16; TEMP 97.6; O2SAT 97
[2024-09-11 08:58] VITALS: BP 142/77; PULSE 84; RESP 17; TEMP 97.5; O2SAT 99
[2024-09-11 17:15] VITALS: BP 119/62; PULSE 75; RESP 18; TEMP 97; O2SAT 98
[2024-09-11 23:00] VITALS: BP 120/65; PULSE 78; RESP 18; TEMP 98.2; O2SAT 98
[2024-09-12 10:14] VITALS: BP 107/61; PULSE 70; RESP 16; TEMP 97.5; O2SAT 98
[2024-09-12 20:31] VITALS: BP 118/76; RESP 18
[2024-09-13] VITALS (10 sets, daily range): BP systolic 98–118; BP diastolic 55–77; PULSE 69–90; RESP 16–18; TEMP 97.6–98.2; O2SAT 98–100
[2024-09-14 00:30] VITALS: BP 106/62; PULSE 74; RESP 18; TEMP 97.6; O2SAT 99
[2024-09-14 01:30] VITALS: BP 110/68; PULSE 68; RESP 18; TEMP 98; O2SAT 98
[2024-09-14 08:20] VITALS: BP 104/60; PULSE 77; RESP 17; TEMP 97.4; O2SAT 97
[2024-09-14 09:36] VITALS: BP 104/60; PULSE 77; RESP 18; TEMP 97.5; O2SAT 97
[2024-09-14 16:58] VITALS: BP 114/70; PULSE 75; RESP 18; TEMP 98; O2SAT 99
[2024-09-14 20:07] VITALS: BP 110/61; PULSE 84; RESP 18; TEMP 97.6; O2SAT 98
[2024-09-15 10:18] VITALS: BP 142/72; PULSE 70; RESP 17; TEMP 97.7; O2SAT 99
[2024-09-15 20:35] VITALS: RESP 18
[2024-09-16 09:04] VITALS: BP 116/67; PULSE 66; RESP 18; TEMP 97.8; O2SAT 99
[2024-09-16 17:38] VITALS: BP 124/74; PULSE 75; RESP 18; TEMP 97.8; O2SAT 98
[2024-09-16 20:06] VITALS: BP 121/64; PULSE 85; RESP 18; TEMP 97.8
[2024-09-17 08:16] VITALS: BP 128/76; PULSE 85; RESP 18; TEMP 97.7; O2SAT 97
[2024-09-17 21:27] VITALS: RESP 18
[2024-09-18 08:56] VITALS: BP 122/65; PULSE 69; RESP 18; TEMP 97.7; O2SAT 100
[2024-09-18 20:35] VITALS: BP 118/71; PULSE 71; RESP 19; TEMP 98; O2SAT 98
[2024-09-19 10:42] VITALS: BP 113/82; PULSE 18; PULSE 78; RESP 20; TEMP 97.4; O2SAT 98
[2024-09-19 16:39] VITALS: BP 129/78; PULSE 85; RESP 18; O2SAT 97
[2024-09-19 20:30] VITALS: RESP 18
[2024-09-20 09:20] VITALS: BP 136/77; PULSE 60; RESP 16; TEMP 97.4; O2SAT 99
[2024-09-20 20:09] VITALS: BP 117/69; PULSE 65; RESP 16; TEMP 97.8; O2SAT 99
[2024-09-21 09:00] VITALS: BP 103/51; PULSE 66; RESP 18; TEMP 97.8; O2SAT 99
[2024-09-21 16:18] VITALS: BP 90/50; PULSE 66
[2024-09-21 20:38] VITALS: BP 105/59; PULSE 72; RESP 18; TEMP 97.8
[2024-09-22 08:00] VITALS: BP 133/70; PULSE 62; RESP 17; TEMP 97.6; O2SAT 99
[2024-09-22 17:07] VITALS: BP 96/53; PULSE 69
[2024-09-22 21:24] VITALS: RESP 18
[2024-09-23 09:00] VITALS: BP 106/56; PULSE 61; RESP 16; TEMP 97.5
[2024-09-23 22:06] VITALS: RESP 17
[2024-09-24 08:40] VITALS: BP 126/74; PULSE 82; RESP 17; TEMP 97.8; O2SAT 98
[2024-09-24 08:46] VITALS: BP 126/74; PULSE 82; RESP 17; TEMP 97.8
[2024-09-24 16:43] VITALS: BP 96/50; PULSE 60; RESP 17; TEMP 97.8; O2SAT 96
[2024-09-24 23:15] VITALS: BP 101/51; PULSE 67; RESP 18; TEMP 97.8; O2SAT 97
[2024-09-25 08:18] LABS: BASOPHILS % (AUTO) 0.5 % (0.0-2.0); HEMOGLOBIN 12.2 g/dL (12.0-16.0); LYMPHOCYTES # (AUTO) 2.7 K/uL (1.0-4.8); LYMPHOCYTES % (AUTO) 34.2 % (22.0-44.0); MEAN CORPUSCULAR HEMOGLOBIN 31.8 pg (26.0-34.0); MEAN CORPUSCULAR HGB CONC 33.1 G/dL (31.0-37.0); MEAN CORPUSCULAR VOLUME 96 fL (80-100); MONOCYTES # (AUTO) 0.7 K/uL (0.1-1.0); MONOCYTES % (AUTO) 8.2 % (2.0-9.0); NEUTROPHILS # (AUTO) 4.5 K/uL (1.8-7.7); NEUTROPHILS % (AUTO) 56.1 % (40.0-70.0); PLATELET COUNT (AUTO) 198 K/uL (150-450); RED BLOOD CELL COUNT(AUTO) 3.84 MIL/uL (4.00-5.20); RED CELL DISTRIBUTION WIDTH 15.3 % (11.5-14.5)
[2024-09-25 08:57] LABS: ALBUMIN 3.3 g/dL (3.4-5.0); BILIRUBIN,TOTAL 0.4 mg/dL (0.1-1.0); CALCIUM, TOTAL 8.9 mg/dL (8.8-10.5); CREATININE 1.63 mg/dL (0.60-1.30); MAGNESIUM 2.5 mg/dL (1.80-2.40); PHOSPHORUS 4.5 mg/dL (2.5-4.9); POTASSIUM 4.4 mmol/L (3.5-5.1); TOTAL PROTEIN, SERUM 7.6 g/dL (6.4-8.2)
[2024-09-25 09:47] VITALS: BP 129/70; PULSE 77; RESP 16; TEMP 97.4; O2SAT 98
[2024-09-25 21:14] VITALS: BP 125/73; PULSE 73; RESP 18; TEMP 97.6; O2SAT 98
[2024-09-26 10:45] VITALS: BP 126/64; PULSE 68; RESP 18; TEMP 97.7; O2SAT 98
[2024-09-26 17:03] VITALS: BP 115/62; PULSE 75; RESP 18; O2SAT 97
[2024-09-26 21:01] VITALS: BP 118/64; PULSE 70; RESP 18; TEMP 97.6
[2024-09-27 08:29] VITALS: BP 135/66; PULSE 65; RESP 18; TEMP 97.4
[2024-09-27 22:32] VITALS: BP 126/70; PULSE 67; RESP 18; TEMP 97.5
[2024-09-28 08:48] VITALS: BP 121/60; PULSE 57; RESP 18; TEMP 97.6
[2024-09-28 21:16] VITALS: RESP 18
[2024-09-28 21:26] VITALS: TEMP 97.7
[2024-09-29 13:26] VITALS: BP 124/71; PULSE 72; RESP 17; TEMP 97.8; O2SAT 99
[2024-09-29 20:40] VITALS: RESP 18
[2024-09-30 10:36] VITALS: BP 128/62; PULSE 58; RESP 16; TEMP 97.6; O2SAT 99
[2024-09-30 20:31] VITALS: RESP 18
[2024-10-01 15:35] VITALS: BP 127/56; PULSE 64; RESP 17; TEMP 98; O2SAT 98
[2024-10-01 21:50] VITALS: BP 103/52; PULSE 74; RESP 18; TEMP 97.7; O2SAT 97
[2024-10-02 09:21] VITALS: BP 136/77; PULSE 64; RESP 18; TEMP 97.5; O2SAT 99
[2024-10-02 20:15] VITALS: BP 94/52; PULSE 65; RESP 16; TEMP 97.6; O2SAT 97
[2024-10-03 10:43] VITALS: BP 115/63; PULSE 72; RESP 17; TEMP 97.2; O2SAT 97
[2024-10-03 21:24] VITALS: RESP 18
[2024-10-04 09:36] VITALS: RESP 19; TEMP 97
[2024-10-04 21:17] VITALS: RESP 18
[2024-10-05 09:37] VITALS: BP 110/65; PULSE 78; RESP 19; TEMP 98; O2SAT 97
[2024-10-05 16:27] VITALS: BP 102/61; PULSE 89; RESP 18; O2SAT 98
[2024-10-06 11:27] VITALS: BP 121/54; PULSE 61; RESP 18; TEMP 97.8; O2SAT 97
[2024-10-06 22:15] VITALS: BP 121/63; PULSE 66; RESP 18; TEMP 97.7; O2SAT 97
[2024-10-07 09:00] VITALS: BP 108/47; PULSE 60; TEMP 97.5
[2024-10-07 20:09] VITALS: BP 129/68; PULSE 69; RESP 18; TEMP 97; O2SAT 99
[2024-10-08 09:09] VITALS: BP 119/44; PULSE 70; RESP 18; TEMP 97.8; O2SAT 96
[2024-10-08 22:28] VITALS: BP 97/55; PULSE 77; RESP 18; TEMP 97.6; O2SAT 98
[2024-10-09 08:00] VITALS: BP 119/68; PULSE 82; RESP 17; TEMP 97.3; O2SAT 100
[2024-10-09 20:10] VITALS: BP 90/48; PULSE 73; RESP 16; TEMP 96.5; O2SAT 99
[2024-10-10 09:00] VITALS: BP 80/59; PULSE 77; RESP 16; TEMP 97.4
[2024-10-10 17:09] VITALS: BP 98/53
[2024-10-10 20:00] VITALS: RESP 19
[2024-10-11 08:00] VITALS: BP 110/65; PULSE 75; RESP 16; TEMP 97.8; O2SAT 99
[2024-10-11 21:36] VITALS: RESP 16
[2024-10-11 21:40] VITALS: RESP 16
[2024-10-12 10:13] VITALS: BP 116/55; PULSE 60; RESP 18; TEMP 97.5; O2SAT 99
[2024-10-12 17:55] VITALS: BP 98/63; PULSE 65; RESP 18; TEMP 98.8; O2SAT 98
[2024-10-12 20:44] VITALS: BP 94/57; PULSE 73; RESP 18; TEMP 97.6; O2SAT 98
[2024-10-13 09:50] VITALS: BP 115/70; PULSE 62; RESP 19; TEMP 97.7; O2SAT 98
[2024-10-13 20:24] VITALS: RESP 18
[2024-10-14 08:37] VITALS: BP 123/72; PULSE 64; RESP 18; TEMP 96.9; O2SAT 99
[2024-10-14 16:45] VITALS: BP 104/55; PULSE 53; RESP 18; TEMP 97.3; O2SAT 98
[2024-10-14 21:25] VITALS: BP 13/78; PULSE 98; RESP 18; TEMP 97.8; O2SAT 99
[2024-10-15 08:51] VITALS: BP 123/72; PULSE 98; RESP 16; TEMP 97.6; O2SAT 98
[2024-10-15 16:03] VITALS: BP 100/58; PULSE 68; RESP 17; TEMP 98; O2SAT 98
[2024-10-15 20:21] VITALS: BP 92/53; PULSE 67; RESP 16; TEMP 96.6; O2SAT 98
[2024-10-16 10:26] VITALS: BP 130/78; PULSE 60; RESP 16; TEMP 98
[2024-10-16 21:00] VITALS: BP 136/69; PULSE 66; RESP 18; TEMP 98.6; O2SAT 98
[2024-10-17 09:52] VITALS: BP 108/71; PULSE 83; RESP 18; TEMP 97.7
[2024-10-17 16:29] VITALS: BP 91/51; PULSE 59
[2024-10-17 20:20] VITALS: BP 109/63; PULSE 62; RESP 16; TEMP 97.3; O2SAT 97
[2024-10-18 09:16] VITALS: BP 130/68; PULSE 62; RESP 18; TEMP 97.2; O2SAT 98
[2024-10-18 20:40] VITALS: BP 104/65; PULSE 62; RESP 20; TEMP 97.5; O2SAT 97
[2024-10-19 09:22] VITALS: BP 122/72; PULSE 72; RESP 18; TEMP 97.3
[2024-10-19 20:34] VITALS: BP 118/67; PULSE 70; RESP 18; TEMP 97.2
[2024-10-20 09:03] VITALS: BP 125/63; PULSE 65; RESP 17; TEMP 97; O2SAT 96
[2024-10-20 16:34] VITALS: BP 121/67; PULSE 64; RESP 17; O2SAT 98
[2024-10-20 20:07] VITALS: BP 95/60; PULSE 98; RESP 18; TEMP 97.8; O2SAT 96
[2024-10-21 10:29] VITALS: BP 139/65; PULSE 63; RESP 18; TEMP 97.8; O2SAT 98
[2024-10-21 21:24] VITALS: BP 98/60; PULSE 63; RESP 18; TEMP 97.4; O2SAT 97
[2024-10-22 10:44] VITALS: BP 135/80; PULSE 97; RESP 17; TEMP 97.6; O2SAT 98
[2024-10-22 21:04] VITALS: BP 113/55; PULSE 66; RESP 17; TEMP 97.3; O2SAT 99
[2024-10-23 08:00] VITALS: BP 135/70; PULSE 95; RESP 18; TEMP 97.6; O2SAT 97
[2024-10-23 18:00] VITALS: BP 121/59; PULSE 75; RESP 18
[2024-10-23 22:07] VITALS: BP 134/74; PULSE 78; RESP 18; TEMP 98.5; O2SAT 98
[2024-10-24 08:45] VITALS: BP 110/67; PULSE 87; RESP 17; TEMP 97.7; O2SAT 99
[2024-10-24 17:03] VITALS: BP 106/47; PULSE 61
[2024-10-24 21:17] VITALS: RESP 17; TEMP 98.1
[2024-10-25 09:00] VITALS: BP 134/63; PULSE 60; RESP 16; TEMP 97.7; O2SAT 99
[2024-10-25 20:30] VITALS: BP 137/63; PULSE 69; RESP 18; TEMP 97.6; O2SAT 98
[2024-10-26 09:24] VITALS: BP 137/69; PULSE 69; RESP 18; TEMP 97.3; O2SAT 100
[2024-10-26 16:25] VITALS: BP 96/63; PULSE 63; RESP 18; TEMP 98; O2SAT 97
[2024-10-26 21:30] VITALS: BP 103/55; PULSE 63; RESP 18; TEMP 97.4; O2SAT 99
[2024-10-27 08:30] VITALS: BP 127/64; PULSE 61; RESP 18; TEMP 97.7; O2SAT 98
[2024-10-27 21:02] VITALS: BP 117/67; PULSE 73; RESP 18; TEMP 97.8
[2024-10-28 09:06] VITALS: BP 140/74; PULSE 74; RESP 18; TEMP 97.2; O2SAT 97
[2024-10-28 18:00] VITALS: BP 105/64; PULSE 79; RESP 17; TEMP 97.6; O2SAT 97
[2024-10-28 20:16] VITALS: BP 110/54; PULSE 60; RESP 17; TEMP 96.6; O2SAT 98
[2024-10-29 09:27] VITALS: BP 115/62; PULSE 60; RESP 18; TEMP 97.8; O2SAT 98
[2024-10-29 16:48] VITALS: BP 113/63; PULSE 60; RESP 18; TEMP 97; O2SAT 98
[2024-10-29 20:00] VITALS: BP 101/54; PULSE 60; RESP 18; TEMP 97.8; O2SAT 97
[2024-10-30 09:00] VITALS: BP 105/59; PULSE 62; RESP 18; TEMP 97; O2SAT 98
[2024-10-30 23:06] VITALS: BP 139/65; PULSE 74; RESP 18; TEMP 98.3; O2SAT 97
[2024-10-31 08:40] VITALS: BP 97/68; PULSE 85; RESP 18; TEMP 97.5; O2SAT 99
[2024-10-31 23:47] VITALS: BP 98/57; PULSE 63; RESP 18; TEMP 97.4; O2SAT 97
[2024-11-01 10:46] VITALS: BP 105/60; PULSE 64; RESP 18; TEMP 97.3; O2SAT 99
[2024-11-01 20:45] VITALS: BP 112/69; PULSE 81; RESP 19; TEMP 97.5; O2SAT 98
[2024-11-02 10:20] VITALS: BP 117/67; PULSE 62; RESP 18; TEMP 97.4; O2SAT 99
[2024-11-02 23:13] VITALS: BP 104/56; PULSE 53; RESP 18; TEMP 97.7; O2SAT 98
[2024-11-03 16:13] VITALS: RESP 18
[2024-11-03 22:11] VITALS: BP 99/56; PULSE 72; RESP 18; TEMP 98.2; O2SAT 96
[2024-11-04 09:05] VITALS: BP 111/62; PULSE 62; RESP 18; TEMP 97.8; O2SAT 99
[2024-11-04 20:09] VITALS: BP 108/71; PULSE 66; RESP 18; TEMP 97.4; O2SAT 97
[2024-11-05 09:00] VITALS: BP 137/74; PULSE 81; RESP 18; TEMP 97.3; O2SAT 98
[2024-11-05] MEDS: PETROLATUM,WHITE 28 GM JELLY TP PRN (15:37)
[2024-11-05 16:37] VITALS: BP 144/84; PULSE 68
[2024-11-05 21:21] VITALS: BP 114/58; PULSE 67; RESP 18; TEMP 97.1; O2SAT 98
[2024-11-06 10:05] VITALS: BP 128/75; PULSE 70; RESP 18; TEMP 97.6; O2SAT 98
[2024-11-06 16:20] VITALS: BP 133/81; PULSE 87
[2024-11-06 20:00] VITALS: BP 118/60; PULSE 67; RESP 17; TEMP 97.5; O2SAT 96
[2024-11-07 08:00] VITALS: BP 103/68; PULSE 79; RESP 18; TEMP 96.8; O2SAT 99
[2024-11-07 23:06] VITALS: BP 121/68; PULSE 76; RESP 18; TEMP 97.8; O2SAT 99
[2024-11-08 09:40] VITALS: BP 120/67; PULSE 68; RESP 16; TEMP 97.7; O2SAT 99
[2024-11-08 22:45] VITALS: BP 130/66; PULSE 68; RESP 18; TEMP 97.6; O2SAT 98
[2024-11-09 10:36] VITALS: BP 131/69; PULSE 81; RESP 20; TEMP 98.2; O2SAT 98
[2024-11-09 16:32] VITALS: BP 113/59; PULSE 78; RESP 18; O2SAT 97
[2024-11-09 22:00] VITALS: RESP 18
[2024-11-10 09:00] VITALS: BP 114/68; PULSE 81; RESP 19; TEMP 97.7; O2SAT 97
[2024-11-10 21:34] VITALS: BP 103/54; PULSE 63; RESP 18; TEMP 97.2; O2SAT 99
[2024-11-11 09:43] VITALS: BP 102/60; PULSE 69; RESP 16; TEMP 97.4; O2SAT 100
[2024-11-11 16:35] VITALS: BP 123/64; PULSE 60; RESP 17; TEMP 98; O2SAT 97
[2024-11-11 22:16] VITALS: BP 107/77; PULSE 67; RESP 18; TEMP 97.4; O2SAT 97
[2024-11-12 01:17] VITALS: BP 121/60; PULSE 72; RESP 18; TEMP 97.7; O2SAT 97
[2024-11-12 10:00] VITALS: BP 118/60; PULSE 68; RESP 17; TEMP 97.5; O2SAT 97
[2024-11-12 22:02] VITALS: BP 110/60; PULSE 65; RESP 18; TEMP 97.1
[2024-11-13 08:00] VITALS: BP 133/74; PULSE 68; RESP 16; TEMP 97.8; O2SAT 98
[2024-11-13 21:43] VITALS: BP 108/61; PULSE 69; RESP 18; TEMP 97.6; O2SAT 96
[2024-11-14 09:05] VITALS: BP 119/71; PULSE 72; RESP 18; TEMP 98; O2SAT 96
[2024-11-14 21:55] VITALS: BP 130/82; PULSE 73; RESP 18; TEMP 97.3; O2SAT 97
[2024-11-15 08:00] VITALS: BP 107/61; PULSE 97; RESP 16; TEMP 97.7; O2SAT 99
[2024-11-15 16:24] VITALS: BP 112/65; PULSE 98; RESP 18; O2SAT 98
[2024-11-15 21:53] VITALS: BP 90/61; PULSE 94; RESP 18; TEMP 97.6; O2SAT 97
[2024-11-16 08:15] VITALS: BP 150/68; PULSE 67; RESP 18; TEMP 97.5; O2SAT 99
[2024-11-16 09:35] VITALS: BP 150/68; PULSE 68; RESP 18; TEMP 97.5; O2SAT 99
[2024-11-16 16:38] VITALS: BP 114/62; PULSE 59; RESP 16; TEMP 97.8; O2SAT 97
[2024-11-16 20:31] VITALS: BP 110/56; PULSE 59; RESP 18; TEMP 97; O2SAT 99
[2024-11-17 09:12] VITALS: BP 132/71; PULSE 66; RESP 18; TEMP 97.2; O2SAT 99
[2024-11-17 20:32] VITALS: BP 103/64; PULSE 56; RESP 18; TEMP 97.6; O2SAT 98
[2024-11-18 09:25] VITALS: BP 121/58; PULSE 61; RESP 18; TEMP 97; O2SAT 100
[2024-11-18 16:45] VITALS: BP 111/60; PULSE 65; RESP 17; TEMP 97.6; O2SAT 98
[2024-11-18 22:23] VITALS: BP 104/60; PULSE 65; RESP 18; TEMP 97.5; O2SAT 98
[2024-11-19 08:52] VITALS: BP 145/69; PULSE 76; RESP 18; TEMP 97.4; O2SAT 100
[2024-11-19 16:55] VITALS: BP 110/61; PULSE 61; RESP 16; TEMP 98; O2SAT 98
[2024-11-19 22:34] VITALS: BP 104/56; PULSE 18; RESP 18; TEMP 97.6; O2SAT 96
[2024-11-19 23:11] LABS: APPEARANCE,URINE CLEAR (CLEAR); BILIRUBIN,URINE NEGATIVE (NEGATIVE); COLOR,URINE LIGHT YELLOW (YELLOW); GLUCOSE, URINE (UA) NEGATIVE (NEGATIVE); KETONES,URINE NEGATIVE (NEGATIVE); LEUKOCYTE ESTERASE ,URINE NEGATIVE (NEGATIVE); NITRATE,URINE NEGATIVE (NEGATIVE); OCCULT BLOOD,URINE NEGATIVE (NEGATIVE); PH,URINE 6.5 (5.0-8.0); PROTEIN,URINE NEGATIVE (NEGATIVE); SPECIFIC GRAVITIY, URINE 1.011 (1.003-1.030); UROBILINOGEN,URINE <=1.0 mg/dL (<=1.0)
[2024-11-20 10:52] VITALS: BP 112/55; PULSE 67; RESP 18; TEMP 97.3; O2SAT 100
[2024-11-21 00:03] VITALS: BP 104/53; PULSE 64; RESP 18; TEMP 97.7; O2SAT 98
[2024-11-21 16:22] VITALS: BP 117/71; PULSE 66; RESP 18; TEMP 97; O2SAT 99
[2024-11-21 21:12] VITALS: BP 111/59; PULSE 61; RESP 18; TEMP 97.8; O2SAT 96
[2024-11-22 08:30] VITALS: BP 123/68; PULSE 85; RESP 18; TEMP 97.9; O2SAT 96
[2024-11-22 16:15] VITALS: BP 112/66; PULSE 62; RESP 17; O2SAT 96
[2024-11-22 20:32] VITALS: BP 135/65; PULSE 65; RESP 18; TEMP 97.2; O2SAT 98
[2024-11-23 09:49] VITALS: BP 122/68; PULSE 80; RESP 18; TEMP 97.5; O2SAT 98
[2024-11-23 20:00] VITALS: BP 122/60; PULSE 60; RESP 19; TEMP 97.4; O2SAT 100
[2024-11-24 08:00] VITALS: BP 114/69; PULSE 63; RESP 18; TEMP 97.3; O2SAT 98
[2024-11-24 21:59] VITALS: BP 110/58; PULSE 60; RESP 17; TEMP 97.6; O2SAT 99
[2024-11-25 08:45] VITALS: BP 109/55; PULSE 66; RESP 18; TEMP 97.3
[2024-11-25 20:35] VITALS: BP 114/59; PULSE 62; RESP 18; TEMP 97.4; O2SAT 100
[2024-11-26 11:25] VITALS: BP 126/68; PULSE 66; RESP 16; TEMP 97.7; O2SAT 99
[2024-11-26 11:39] LABS: BASOPHILS % (AUTO) 0.7 % (0.0-2.0); EOSINOPHILS % (AUTO) 1.2 % (1.0-6.0); HEMATOCRIT 36.8 % (36-46); HEMOGLOBIN 12.2 g/dL (12.0-16.0); LYMPHOCYTES # (AUTO) 1.7 K/uL (1.0-4.8); LYMPHOCYTES % (AUTO) 34.5 % (22.0-44.0); MEAN CORPUSCULAR HEMOGLOBIN 31.8 pg (26.0-34.0); MEAN CORPUSCULAR HGB CONC 33.1 G/dL (31.0-37.0); MEAN CORPUSCULAR VOLUME 96 fL (80-100); MONOCYTES # (AUTO) 0.5 K/uL (0.1-1.0); MONOCYTES % (AUTO) 9.1 % (2.0-9.0); NEUTROPHILS # (AUTO) 2.7 K/uL (1.8-7.7); NEUTROPHILS % (AUTO) 54.5 % (40.0-70.0); PLATELET COUNT (AUTO) 101 K/uL (150-450); RED BLOOD CELL COUNT(AUTO) 3.83 MIL/uL (4.00-5.20); RED CELL DISTRIBUTION WIDTH 14.4 % (11.5-14.5)
[2024-11-26 12:29] LABS: CALCIUM, TOTAL 8.6 mg/dL (8.8-10.5); CREATININE 1.65 mg/dL (0.60-1.30); POTASSIUM 4.5 mmol/L (3.5-5.1)
[2024-11-26 12:34] LABS: ALBUMIN 2.8 g/dL (3.4-5.0); BILIRUBIN,TOTAL 0.3 mg/dL (0.1-1.0); TOTAL PROTEIN, SERUM 6.9 g/dL (6.4-8.2)
[2024-11-26 13:00] LABS: APPEARANCE,URINE CLEAR (CLEAR); BILIRUBIN,URINE NEGATIVE (NEGATIVE); COLOR,URINE LIGHT YELLOW (YELLOW); GLUCOSE, URINE (UA) NEGATIVE (NEGATIVE); KETONES,URINE NEGATIVE (NEGATIVE); LEUKOCYTE ESTERASE ,URINE SMALL (NEGATIVE); NITRATE,URINE NEGATIVE (NEGATIVE); OCCULT BLOOD,URINE NEGATIVE (NEGATIVE); PH,URINE 6.5 (5.0-8.0); PROTEIN,URINE NEGATIVE (NEGATIVE); SPECIFIC GRAVITIY, URINE 1.013 (1.003-1.030); UROBILINOGEN,URINE <=1.0 mg/dL (<=1.0)
[2024-11-26 13:38] LABS: BACTERIA,URINE None Seen /HPF (None Seen); RBC,URINE 0-2 /HPF (0-2); SQUAMOUS EPITHELIAL CELL,UR Few /LPF (None Seen); WBC,URINE 0-2 /HPF (0-5)
[2024-11-26 22:02] VITALS: BP 90/50; PULSE 68; RESP 18; TEMP 97.5; O2SAT 99
[2024-11-27 09:00] VITALS: BP 113/61; PULSE 63; RESP 18; TEMP 97.5; O2SAT 99
[2024-11-27] MEDS: CHOLECALCIFEROL (VIT D3) 5,000 [125 MCG] UNITS CAPSULE PO SCH (16:42)
[2024-11-27 20:23] VITALS: BP 111/70; PULSE 75; RESP 18; TEMP 98; O2SAT 97
[2024-11-28 09:00] VITALS: BP 116/68; PULSE 78; RESP 18; TEMP 98.3; O2SAT 98
[2024-11-28 09:27] VITALS: BP 116/68; PULSE 78; RESP 18; TEMP 98.3; O2SAT 98
[2024-11-28 20:33] VITALS: BP 101/60; PULSE 79; RESP 18; TEMP 97.8; O2SAT 95
[2024-11-29 08:00] VITALS: BP 135/76; PULSE 86; RESP 18; TEMP 97.4
[2024-11-29 08:01] LABS: CALCIUM, TOTAL 8.2 mg/dL (8.8-10.5); CREATININE 1.57 mg/dL (0.60-1.30); POTASSIUM 4.7 mmol/L (3.5-5.1)
[2024-11-29 22:27] VITALS: BP 108/56; PULSE 64; RESP 18; TEMP 97.1; O2SAT 99
[2024-11-30 10:01] VITALS: BP 110/67; PULSE 99; RESP 18; TEMP 97.4; O2SAT 97
[2024-11-30 21:39] VITALS: BP 119/64; PULSE 63; RESP 18; TEMP 97.3; O2SAT 100
[2024-12-01 01:06] LABS: PARATHYROID HORMONE INTACT 49 pg/mL (15-65)
[2024-12-01 08:00] VITALS: BP 142/70; PULSE 71; RESP 18; TEMP 97
[2024-12-01] MEDS ORDERED: AmLODIPine BESYLATE 5 MG TABLET PO SCH (09:00)
[2024-12-01 20:42] VITALS: BP 150/72; PULSE 75; RESP 18; TEMP 97.7; O2SAT 98
[2024-12-02] MEDS: AmLODIPine BESYLATE 5 MG TABLET PO SCH (08:22)
[2024-12-02 08:30] VITALS: BP 126/64; PULSE 63; RESP 18; TEMP 97.7; O2SAT 99
[2024-12-02 17:20] VITALS: BP 158/77; PULSE 78; RESP 18; O2SAT 98
[2024-12-02 21:22] VITALS: BP 110/65; PULSE 65; RESP 18; TEMP 97.9; O2SAT 100
[2024-12-03 09:19] VITALS: BP 136/73; PULSE 79; RESP 18; TEMP 97.8; O2SAT 97
[2024-12-03 22:15] VITALS: BP 106/55; PULSE 73; RESP 18; TEMP 97.7; O2SAT 97
[2024-12-04 09:00] LABS: CALCIUM, TOTAL 8.7 mg/dL (8.8-10.5); CREATININE 1.67 mg/dL (0.60-1.30); MAGNESIUM 2.5 mg/dL (1.80-2.40); PHOSPHORUS 4.2 mg/dL (2.5-4.9); POTASSIUM 4.1 mmol/L (3.5-5.1)
[2024-12-04 11:47] VITALS: BP 121/71; PULSE 76; RESP 18; TEMP 96.6; O2SAT 97
[2024-12-04 21:54] VITALS: BP 98/60; PULSE 66; RESP 18; TEMP 97.8; O2SAT 98
[2024-12-05 09:00] VITALS: BP 117/70; PULSE 77; RESP 18; TEMP 97.9; O2SAT 95
[2024-12-05 22:21] VITALS: BP 106/55; PULSE 60; RESP 19; TEMP 97.6; O2SAT 95
[2024-12-06 10:31] VITALS: BP 125/71; PULSE 68; RESP 17; TEMP 97.6; O2SAT 98
[2024-12-06 22:48] VITALS: RESP 18
[2024-12-07 08:30] LABS: BASOPHILS % (AUTO) 0.5 % (0.0-2.0); EOSINOPHILS % (AUTO) 1.4 % (1.0-6.0); HEMATOCRIT 39.6 % (36-46); HEMOGLOBIN 13.2 g/dL (12.0-16.0); LYMPHOCYTES # (AUTO) 3.4 K/uL (1.0-4.8); LYMPHOCYTES % (AUTO) 48.1 % (22.0-44.0); MEAN CORPUSCULAR HEMOGLOBIN 32.3 pg (26.0-34.0); MEAN CORPUSCULAR HGB CONC 33.4 G/dL (31.0-37.0); MEAN CORPUSCULAR VOLUME 97 fL (80-100); MONOCYTES # (AUTO) 0.5 K/uL (0.1-1.0); MONOCYTES % (AUTO) 6.6 % (2.0-9.0); NEUTROPHILS % (AUTO) 43.4 % (40.0-70.0); PLATELET COUNT (AUTO) 174 K/uL (150-450); RED CELL DISTRIBUTION WIDTH 14.2 % (11.5-14.5)
[2024-12-07 08:41] LABS: CALCIUM, TOTAL 9.2 mg/dL (8.8-10.5); CREATININE 1.6 mg/dL (0.60-1.30); MAGNESIUM 2.4 mg/dL (1.80-2.40); PHOSPHORUS 4.2 mg/dL (2.5-4.9); POTASSIUM 4.3 mmol/L (3.5-5.1)
[2024-12-07 10:47] VITALS: BP 129/75; PULSE 78; RESP 18; TEMP 97.3; O2SAT 99
[2024-12-07 22:13] VITALS: BP 117/61; PULSE 60; RESP 18; TEMP 97.7; O2SAT 99
[2024-12-08 10:58] VITALS: BP 120/64; PULSE 68; RESP 17; TEMP 97.7; O2SAT 96
[2024-12-08 20:49] VITALS: BP 114/75; PULSE 68; RESP 18; TEMP 97.7
[2024-12-09 09:00] VITALS: BP 143/78; RESP 16
[2024-12-09 20:00] VITALS: BP 108/58; PULSE 69; RESP 19; TEMP 97.8; O2SAT 0
[2024-12-10 07:31] LABS: BASOPHILS % (AUTO) 0.7 % (0.0-2.0); EOSINOPHILS % (AUTO) 1.4 % (1.0-6.0); HEMATOCRIT 33.7 % (36-46); HEMOGLOBIN 11.2 g/dL (12.0-16.0); LYMPHOCYTES # (AUTO) 3.4 K/uL (1.0-4.8); LYMPHOCYTES % (AUTO) 53.4 % (22.0-44.0); MEAN CORPUSCULAR HEMOGLOBIN 32.3 pg (26.0-34.0); MEAN CORPUSCULAR HGB CONC 33.3 G/dL (31.0-37.0); MEAN CORPUSCULAR VOLUME 97 fL (80-100); MONOCYTES # (AUTO) 0.6 K/uL (0.1-1.0); MONOCYTES % (AUTO) 9.2 % (2.0-9.0); NEUTROPHILS # (AUTO) 2.3 K/uL (1.8-7.7); NEUTROPHILS % (AUTO) 35.3 % (40.0-70.0); PLATELET COUNT (AUTO) 126 K/uL (150-450); RED BLOOD CELL COUNT(AUTO) 3.48 MIL/uL (4.00-5.20); RED CELL DISTRIBUTION WIDTH 14.4 % (11.5-14.5); WHITE BLOOD COUNT (AUTO) 6.4 K/uL (4.5-11.0)
[2024-12-10 08:06] LABS: CALCIUM, TOTAL 8.3 mg/dL (8.8-10.5); CREATININE 1.64 mg/dL (0.60-1.30); MAGNESIUM 2.2 mg/dL (1.80-2.40); PHOSPHORUS 3.9 mg/dL (2.5-4.9); POTASSIUM 4.8 mmol/L (3.5-5.1)
[2024-12-10 08:18] VITALS: BP 121/61; PULSE 62; RESP 18; TEMP 97.6; O2SAT 97
[2024-12-10 20:34] VITALS: BP 118/78; PULSE 72; RESP 17; TEMP 97.2; O2SAT 98
[2024-12-11 11:07] VITALS: BP 131/78; PULSE 91; RESP 18; TEMP 97.1; O2SAT 97
[2024-12-11 20:00] VITALS: BP 112/60; PULSE 67; RESP 19; TEMP 96.5; O2SAT 99
[2024-12-12 08:00] VITALS: BP 138/68; PULSE 65; RESP 17; TEMP 97; O2SAT 99
[2024-12-12 21:56] VITALS: BP 139/51; PULSE 71; RESP 18; TEMP 97.1; O2SAT 99
[2024-12-13 07:03] LABS: BASOPHILS % (AUTO) 0.7 % (0.0-2.0); EOSINOPHILS % (AUTO) 1.2 % (1.0-6.0); HEMATOCRIT 33.6 % (36-46); HEMOGLOBIN 11.2 g/dL (12.0-16.0); LYMPHOCYTES # (AUTO) 3.3 K/uL (1.0-4.8); LYMPHOCYTES % (AUTO) 50.3 % (22.0-44.0); MEAN CORPUSCULAR HEMOGLOBIN 32.3 pg (26.0-34.0); MEAN CORPUSCULAR HGB CONC 33.3 G/dL (31.0-37.0); MEAN CORPUSCULAR VOLUME 97 fL (80-100); MONOCYTES # (AUTO) 0.7 K/uL (0.1-1.0); MONOCYTES % (AUTO) 10.3 % (2.0-9.0); NEUTROPHILS # (AUTO) 2.5 K/uL (1.8-7.7); NEUTROPHILS % (AUTO) 37.5 % (40.0-70.0); PLATELET COUNT (AUTO) 101 K/uL (150-450); RED BLOOD CELL COUNT(AUTO) 3.47 MIL/uL (4.00-5.20); RED CELL DISTRIBUTION WIDTH 14.3 % (11.5-14.5); WHITE BLOOD COUNT (AUTO) 6.6 K/uL (4.5-11.0)
[2024-12-13 07:13] LABS: CALCIUM, TOTAL 8.1 mg/dL (8.8-10.5); CREATININE 1.63 mg/dL (0.60-1.30); POTASSIUM 4.8 mmol/L (3.5-5.1)
[2024-12-13 07:16] LABS: MAGNESIUM 2.4 mg/dL (1.80-2.40); PHOSPHORUS 4.4 mg/dL (2.5-4.9)
[2024-12-13 08:02] LABS: RBC MORPHOLOGY COMMENT NORMAL RBC MORPH
[2024-12-13 10:43] VITALS: BP 100/54; PULSE 64; RESP 18; TEMP 97.3; O2SAT 96
[2024-12-13 22:35] VITALS: BP 127/77; PULSE 66; RESP 18; TEMP 97; O2SAT 97
[2024-12-14 09:23] VITALS: BP 120/66; PULSE 63; RESP 18; TEMP 97.8; O2SAT 98
[2024-12-14 23:00] VITALS: RESP 18
[2024-12-15 07:18] LABS: CALCIUM, TOTAL 8.6 mg/dL (8.8-10.5); CREATININE 1.51 mg/dL (0.60-1.30); PHOSPHORUS 4.2 mg/dL (2.5-4.9); POTASSIUM 4.6 mmol/L (3.5-5.1)
[2024-12-15 08:00] VITALS: BP 134/62; PULSE 61; RESP 18; TEMP 97.7; O2SAT 98
[2024-12-15] MEDS: HALOPERIDOL 2 MG TABLET PO SCH (21:24)
[2024-12-15 22:17] VITALS: BP 126/86; PULSE 99; RESP 0; TEMP 98; O2SAT 95
[2024-12-16] MEDS: CHOLECALCIFEROL (VIT D3) 2,000 UNITS [50 MCG] TABLET PO SCH (08:46)
[2024-12-16 10:42] VITALS: BP 157/86; PULSE 86; RESP 18; TEMP 97.7; O2SAT 100
[2024-12-16 20:51] VITALS: BP 108/61; PULSE 66; RESP 18; TEMP 97.6; O2SAT 98
[2024-12-17 07:32] LABS: CALCIUM, TOTAL 8.7 mg/dL (8.8-10.5); CREATININE 1.61 mg/dL (0.60-1.30); PHOSPHORUS 4.2 mg/dL (2.5-4.9); POTASSIUM 4.8 mmol/L (3.5-5.1)
[2024-12-17 16:17] VITALS: BP 126/78; PULSE 91; RESP 18; TEMP 97.4; O2SAT 98
[2024-12-17 21:24] VITALS: BP 125/79; PULSE 86; RESP 18; TEMP 97.5
[2024-12-18 10:30] VITALS: BP 143/68; PULSE 61; RESP 17; TEMP 97.2
[2024-12-18 20:31] VITALS: BP 112/58; PULSE 69; RESP 18; TEMP 97.1; O2SAT 99
[2024-12-19 14:48] VITALS: BP 127/58; PULSE 69; RESP 18; TEMP 97.6; O2SAT 96
[2024-12-19 20:30] VITALS: BP 132/65; PULSE 75; RESP 18; TEMP 97.5; O2SAT 97
[2024-12-19 21:39] VITALS: BP 139/48; PULSE 80; RESP 18; TEMP 98.3; O2SAT 98
[2024-12-19 22:42] VITALS: RESP 18
[2024-12-20 08:00] VITALS: BP 109/65; PULSE 73; RESP 18; TEMP 97.8; O2SAT 97
[2024-12-20 21:30] VITALS: BP 124/71; PULSE 64; RESP 18; TEMP 97.1; O2SAT 98
[2024-12-21 10:12] VITALS: BP 127/78; PULSE 97; RESP 18; TEMP 96.8; O2SAT 98
[2024-12-21 21:34] VITALS: BP 112/56; PULSE 66; RESP 18; TEMP 97.1; O2SAT 96
[2024-12-22 08:30] VITALS: BP 119/75; PULSE 81; RESP 17; TEMP 97.5; O2SAT 97
[2024-12-22 22:40] VITALS: BP 98/64; PULSE 69; RESP 18; TEMP 98.1; O2SAT 98
[2024-12-23 10:33] VITALS: BP 142/80; PULSE 74; RESP 18; TEMP 98.1; O2SAT 96
[2024-12-23 22:40] VITALS: BP 118/52; PULSE 61; RESP 18; TEMP 98; O2SAT 98
[2024-12-24 10:30] VITALS: BP 138/77; PULSE 77; RESP 18; O2SAT 98
[2024-12-24] MEDS: HALOPERIDOL 2 MG TABLET PO SCH (21:04)
[2024-12-24 21:36] VITALS: BP 102/57; PULSE 58; RESP 18; O2SAT 97
[2024-12-25 08:55] VITALS: BP 137/71; PULSE 77; RESP 16; O2SAT 98
[2024-12-25 21:10] VITALS: BP 95/58; PULSE 65; RESP 17; TEMP 97.3; O2SAT 98
[2024-12-26 09:05] VITALS: BP 118/63; PULSE 73; RESP 18; TEMP 97.6; O2SAT 97
[2024-12-26 20:31] VITALS: BP 92/52; PULSE 55; RESP 16; TEMP 97.2; O2SAT 100
[2024-12-27 09:40] VITALS: BP 135/73; PULSE 60; RESP 18; TEMP 97.1; O2SAT 98
[2024-12-27 20:35] VITALS: BP 117/67; PULSE 61; RESP 18; TEMP 97.1; O2SAT 100
[2024-12-28 08:45] VITALS: BP 128/77; PULSE 99; RESP 18; TEMP 97.2
[2024-12-28 21:26] VITALS: RESP 18
[2024-12-29 09:00] VITALS: BP 131/69; PULSE 63; TEMP 97.1
[2024-12-29 23:38] VITALS: BP 113/63; PULSE 68; RESP 16; TEMP 97.7; O2SAT 98
[2024-12-30 11:05] VITALS: BP 106/54; PULSE 63; RESP 17; TEMP 97.3; O2SAT 97
[2024-12-30 21:00] VITALS: BP 121/65; PULSE 61; RESP 18; TEMP 97.9; O2SAT 95
[2024-12-31 09:00] VITALS: BP 127/81; PULSE 69; RESP 17; TEMP 97.8; O2SAT 99
[2024-12-31 23:38] VITALS: BP 136/71; PULSE 70; RESP 17; TEMP 98.1; O2SAT 98
[2025-01-01 09:40] VITALS: BP 146/100; PULSE 87; RESP 18; TEMP 97.5; O2SAT 99
[2025-01-01 23:01] VITALS: BP 102/56; PULSE 69; RESP 18; TEMP 97.3; O2SAT 96
[2025-01-02 10:56] VITALS: BP 129/85; PULSE 80; RESP 18; TEMP 97.3; O2SAT 97
[2025-01-02 21:16] VITALS: RESP 18
[2025-01-03 09:10] VITALS: BP 141/96; PULSE 108; RESP 18; TEMP 97.3; O2SAT 100
[2025-01-03 21:09] VITALS: BP 132/62; PULSE 75; RESP 19; TEMP 97.1; O2SAT 100
[2025-01-04 10:23] VITALS: BP 119/72; PULSE 83; RESP 18; TEMP 97.3; O2SAT 100
[2025-01-04 21:39] VITALS: BP 108/60; PULSE 82; RESP 18; TEMP 97.9; O2SAT 97
[2025-01-05 20:30] VITALS: BP 120/66; PULSE 70; RESP 16; TEMP 98.1; O2SAT 97
[2025-01-06 11:15] VITALS: BP 121/89; PULSE 69; RESP 18; TEMP 97.4; O2SAT 98
[2025-01-06 20:35] VITALS: BP 137/85; PULSE 62; RESP 18; TEMP 98.6; O2SAT 99
[2025-01-07 10:00] VITALS: BP 115/58; PULSE 69; RESP 18; TEMP 97.8; O2SAT 97
[2025-01-07 22:58] VITALS: BP 141/58; PULSE 68; RESP 16; TEMP 97.7; O2SAT 98
[2025-01-08 08:34] VITALS: BP 120/80; PULSE 88; RESP 18; TEMP 97.8; O2SAT 98
[2025-01-08 23:24] VITALS: BP 141/77; PULSE 74; RESP 18; TEMP 98.2; O2SAT 98
[2025-01-09 08:47] VITALS: BP 114/73; PULSE 80; RESP 17; TEMP 97.8; O2SAT 97
[2025-01-09 20:48] VITALS: BP 135/69; PULSE 70; RESP 16; TEMP 97.8; O2SAT 96
[2025-01-10 10:06] VITALS: BP 138/62; PULSE 76; RESP 16; TEMP 97.5; O2SAT 99
[2025-01-10 22:47] VITALS: BP 124/87; PULSE 77; RESP 18; TEMP 97.6; O2SAT 98
[2025-01-11 08:41] VITALS: RESP 18
[2025-01-11 23:25] VITALS: BP 148/77; PULSE 78; RESP 18; TEMP 97.4; O2SAT 97
[2025-01-12 09:00] VITALS: BP 151/64; PULSE 89; RESP 18; TEMP 97.6; O2SAT 98
[2025-01-12 22:34] VITALS: BP 113/64; PULSE 76; RESP 17; TEMP 97.8; O2SAT 99
[2025-01-13] MEDS: BENZTROPINE MESYLATE 2 MG TABLET PO SCH (09:00)
[2025-01-13] MEDS ORDERED: DiphenhydrAMINE HCL 50 MG/ML VIAL IM PRN (09:45)
[2025-01-13 10:15] VITALS: BP 133/81; PULSE 85; RESP 17; TEMP 97.4; O2SAT 97
[2025-01-13] MEDS: DiphenhydrAMINE HCL 50 MG/ML VIAL IM ONE (13:07)
[2025-01-13 21:47] VITALS: BP 147/76; PULSE 72; RESP 17; TEMP 96.9; O2SAT 98
[2025-01-14 14:06] VITALS: BP 140/97; PULSE 95; RESP 17; TEMP 96.8; O2SAT 97
[2025-01-14 20:50] VITALS: BP 91/57; PULSE 70; RESP 18; TEMP 98.1; O2SAT 100
[2025-01-15 08:23] VITALS: BP 119/87; PULSE 62; RESP 18; TEMP 98.1; O2SAT 100
[2025-01-15] MEDS: LORazepam 1 MG TABLET PO PRN (14:06)
[2025-01-15 15:15] VITALS: BP 115/80; RESP 18; O2SAT 98
[2025-01-15] MEDS: BENZTROPINE MESYLATE 1 MG TABLET PO SCH (17:00)
[2025-01-15 20:43] VITALS: BP 124/61; PULSE 83; RESP 18; TEMP 97.9; O2SAT 97
[2025-01-16] MEDS: BENZTROPINE MESYLATE 0.5 MG TABLET PO SCH (08:23)
[2025-01-16 09:02] VITALS: BP_SYST 102; BP_DIAS 65; BP_DIAS 67; PULSE 86; RESP 18; TEMP 97.5; TEMP 97.8; O2SAT 98
[2025-01-16 22:38] VITALS: BP 140/62; PULSE 68; RESP 18; TEMP 97.5; O2SAT 98
[2025-01-17 10:46] VITALS: BP 136/82; PULSE 83; RESP 18; TEMP 97.8; O2SAT 98
[2025-01-17 15:19] VITALS: BP 145/69; PULSE 89; RESP 18; TEMP 97.7; O2SAT 100
[2025-01-17 16:15] VITALS: BP 118/73; PULSE 68; RESP 16; TEMP 97.5; O2SAT 100
[2025-01-17 20:00] VITALS: BP 118/74; PULSE 70; RESP 18; TEMP 97.2; O2SAT 100
[2025-01-18 11:22] VITALS: BP 118/70; PULSE 86; RESP 18; TEMP 97.4; O2SAT 98
[2025-01-18 16:44] VITALS: BP 117/68; PULSE 84; RESP 19; TEMP 98; O2SAT 98
[2025-01-19 03:06] VITALS: BP 140/72; PULSE 77; RESP 19; TEMP 98.1; O2SAT 97
[2025-01-19 10:05] VITALS: BP 119/80; PULSE 82; RESP 17; TEMP 97.5; O2SAT 98
[2025-01-19] MEDS ORDERED: LORazepam 0.5 MG TABLET PO PRN (18:00)
[2025-01-19 20:35] VITALS: BP 117/77; PULSE 84; RESP 18; TEMP 97.6; O2SAT 97
[2025-01-20 08:55] VITALS: BP 158/93; PULSE 75; RESP 17; TEMP 97.3; O2SAT 99
[2025-01-20 11:50] LABS: BASOPHILS % (AUTO) 0.8 % (0.0-2.0); EOSINOPHILS % (AUTO) 1.7 % (1.0-6.0); HEMATOCRIT 36.2 % (36-46); HEMOGLOBIN 12.1 g/dL (12.0-16.0); LYMPHOCYTES # (AUTO) 2.3 K/uL (1.0-4.8); LYMPHOCYTES % (AUTO) 41.2 % (22.0-44.0); MEAN CORPUSCULAR HEMOGLOBIN 33.1 pg (26.0-34.0); MEAN CORPUSCULAR HGB CONC 33.5 G/dL (31.0-37.0); MEAN CORPUSCULAR VOLUME 99 fL (80-100); MONOCYTES # (AUTO) 0.6 K/uL (0.1-1.0); MONOCYTES % (AUTO) 10.2 % (2.0-9.0); NEUTROPHILS # (AUTO) 2.6 K/uL (1.8-7.7); NEUTROPHILS % (AUTO) 46.1 % (40.0-70.0); PLATELET COUNT (AUTO) 175 K/uL (150-450); RED BLOOD CELL COUNT(AUTO) 3.66 MIL/uL (4.00-5.20); RED CELL DISTRIBUTION WIDTH 14.4 % (11.5-14.5); WHITE BLOOD COUNT (AUTO) 5.6 K/uL (4.5-11.0)
[2025-01-20 12:09] LABS: ALBUMIN 3.1 g/dL (3.4-5.0); BILIRUBIN,TOTAL 0.4 mg/dL (0.1-1.0); CALCIUM, TOTAL 8.9 mg/dL (8.8-10.5); CREATININE 1.55 mg/dL (0.60-1.30); POTASSIUM 4.3 mmol/L (3.5-5.1); TOTAL PROTEIN, SERUM 7.3 g/dL (6.4-8.2)
[2025-01-20 21:03] VITALS: BP 145/80; PULSE 84; RESP 18; TEMP 97.6; O2SAT 97
[2025-01-21 08:12] VITALS: BP 107/66; PULSE 94; RESP 17; TEMP 97.1; O2SAT 98
[2025-01-21 20:57] VITALS: RESP 18
[2025-01-22 10:22] VITALS: BP 120/74; PULSE 96; RESP 18; TEMP 97.7; O2SAT 96
[2025-01-22 20:20] VITALS: RESP 17; TEMP 97.8
[2025-01-23 10:12] VITALS: RESP 18; TEMP 97.8
[2025-01-23 20:24] VITALS: RESP 18; TEMP 97
[2025-01-24] MEDS: HALOPERIDOL 1 MG TABLET PO SCH (08:38)
[2025-01-24] MEDS: HALOPERIDOL LACTATE 5 MG/ML VIAL IM PRN (09:18)
[2025-01-24 10:42] VITALS: TEMP 98
[2025-01-24 22:30] VITALS: RESP 18
[2025-01-24] MEDS: HALOPERIDOL 2 MG TABLET PO SCH (22:47)
[2025-01-25 08:22] VITALS: RESP 18; TEMP 97.8
[2025-01-25 20:57] VITALS: TEMP 98
[2025-01-26 09:33] VITALS: TEMP 97.9
[2025-01-26 23:34] VITALS: RESP 18
[2025-01-27] MEDS: AMANTADINE HCL 100 MG CAPSULE PO SCH (09:00)
[2025-01-27 14:12] VITALS: RESP 17
[2025-01-27] MEDS: HALOPERIDOL DECANOATE 50 MG/ML VIAL IM ONE (17:05)
[2025-01-27 20:37] VITALS: RESP 17; TEMP 97.7
[2025-01-27] MEDS: VALPROIC ACID 250 MG/5 ML SOLUTION UDCUP PO SCH (21:03)
[2025-01-28 08:59] VITALS: RESP 18; TEMP 98.2
[2025-01-28 21:51] VITALS: RESP 18
[2025-01-29 08:20] VITALS: RESP 18; TEMP 98
[2025-01-29 23:07] VITALS: RESP 18; TEMP 97.6
[2025-01-30 09:00] VITALS: RESP 18; TEMP 98
[2025-01-30 21:58] VITALS: RESP 18
[2025-01-31 10:46] VITALS: RESP 18
[2025-01-31 20:56] VITALS: RESP 18
[2025-02-01 07:30] VITALS: BP 134/70; PULSE 84; RESP 18; TEMP 97.4; O2SAT 97
[2025-02-01 22:26] VITALS: RESP 18
[2025-02-02 09:58] VITALS: RESP 17; TEMP 97
[2025-02-02 15:59] LABS: APPEARANCE,URINE CLEAR (CLEAR); BILIRUBIN,URINE NEGATIVE (NEGATIVE); COLOR,URINE LIGHT YELLOW (YELLOW); GLUCOSE, URINE (UA) NEGATIVE (NEGATIVE); KETONES,URINE NEGATIVE (NEGATIVE); LEUKOCYTE ESTERASE ,URINE MODERATE (NEGATIVE); NITRATE,URINE NEGATIVE (NEGATIVE); OCCULT BLOOD,URINE NEGATIVE (NEGATIVE); PH,URINE 6.5 (5.0-8.0); PROTEIN,URINE NEGATIVE (NEGATIVE); SPECIFIC GRAVITIY, URINE 1.012 (1.003-1.030); UROBILINOGEN,URINE <=1.0 mg/dL (<=1.0)
[2025-02-02 16:25] LABS: BACTERIA,URINE Few /HPF (None Seen); RBC,URINE 0-2 /HPF (0-2)
[2025-02-02 16:26] LABS: SQUAMOUS EPITHELIAL CELL,UR Few /LPF (None Seen)
[2025-02-02] MEDS: CEPHALEXIN MONOHYDRATE 500 MG CAPSULE PO SCH (18:22)
[2025-02-02 22:55] VITALS: RESP 18
[2025-02-03 09:01] VITALS: RESP 18
[2025-02-03 21:39] VITALS: RESP 18
[2025-02-04 10:34] VITALS: RESP 16
[2025-02-04 22:50] VITALS: BP 131/74; PULSE 66; RESP 18; TEMP 98.1; O2SAT 97
[2025-02-05 08:56] VITALS: RESP 17; TEMP 97.8
[2025-02-05 22:30] VITALS: RESP 18; TEMP 98
[2025-02-06 11:17] VITALS: RESP 17
[2025-02-06 22:58] VITALS: RESP 18
[2025-02-07] MEDS: OMEGA-3/DHA/EPA/FISH OIL 1,000 MG CAPSULE PO SCH (09:00)
[2025-02-07 09:14] VITALS: RESP 18; TEMP 97.8
[2025-02-07 22:50] VITALS: TEMP 97.9
[2025-02-08 09:29] VITALS: RESP 18
[2025-02-08] MEDS: PHENAZOPYRIDINE HCL 200 MG TABLET PO SCH (17:51)
[2025-02-08 18:35] LABS: APPEARANCE,URINE CLEAR (CLEAR); BILIRUBIN,URINE NEGATIVE (NEGATIVE); COLOR,URINE LIGHT YELLOW (YELLOW); GLUCOSE, URINE (UA) NEGATIVE (NEGATIVE); KETONES,URINE NEGATIVE (NEGATIVE); LEUKOCYTE ESTERASE ,URINE TRACE (NEGATIVE); NITRATE,URINE NEGATIVE (NEGATIVE); OCCULT BLOOD,URINE NEGATIVE (NEGATIVE); PROTEIN,URINE NEGATIVE (NEGATIVE); SPECIFIC GRAVITIY, URINE 1.013 (1.003-1.030); UROBILINOGEN,URINE <=1.0 mg/dL (<=1.0)
[2025-02-08 18:45] LABS: BACTERIA,URINE Rare /HPF (None Seen); RBC,URINE None Seen /HPF (0-2); SQUAMOUS EPITHELIAL CELL,UR Rare /LPF (None Seen); WBC,URINE 0-2 /HPF (0-5)
[2025-02-08 23:06] VITALS: RESP 17
[2025-02-09 12:01] VITALS: RESP 18; TEMP 97.9
[2025-02-09] MEDS: CEPHALEXIN MONOHYDRATE 500 MG CAPSULE PO SCH (17:10)
[2025-02-09 23:18] VITALS: RESP 18
[2025-02-10] MEDS: HALOPERIDOL DECANOATE 50 MG/ML VIAL IM SCH (10:46)
[2025-02-10 12:11] VITALS: RESP 17
[2025-02-10] MEDS ORDERED: VALP250S23 PO (13:04)
[2025-02-10] MEDS ORDERED: MEMA5TAB41 PO (13:04)
[2025-02-10] MEDS ORDERED: OMEG100033 PO (13:04)
[2025-02-10] MEDS ORDERED: HALO50VI29 IM (13:04)
[2025-02-10] MEDS ORDERED: AMAN-24 PO (13:04)
[2025-02-10] MEDS ORDERED: DONE-51 PO (13:04)
[2025-02-10 21:48] VITALS: RESP 18
[2025-02-11 08:50] VITALS: RESP 18
== END 2025-02-11 12:30 | DRG 885 ==
LOC: 3EI 22:51 → 3EX 05-19 18:50 → 3EI 07-18 14:33 → UNDODISIN 08-03 11:24 → 3EI 08-05 10:45 → 3EC 08-20 02:12 → 3EI 10-21 06:00
PROVIDERS: ADMIT Psychiatry & Neurology Psychiatry; ATTEND Psychiatry & Neurology Psychiatry
PROC: GZHZZZZ Group Psychotherapy (ICD-10-PCS; principal; 2024-05-09)
PROC: GZ58ZZZ Individual Psychotherapy, Cognitive-Behavioral (ICD-10-PCS; 2024-05-09)
PROC: GZ56ZZZ Individual Psychotherapy, Supportive (ICD-10-PCS; 2024-05-09)
DX: F25.0 Schizoaffective disorder, bipolar type (principal); F06.4 Anxiety disorder due to known physiological condition; N18.32 Chronic kidney disease, stage 3b; F02.818 Dementia in other diseases classified elsewhere, unspecified severity, with other behavioral disturbance; E87.3 Alkalosis; F02.811 Dementia in other diseases classified elsewhere, unspecified severity, with agitation; N39.0 Urinary tract infection, site not specified; E11.22 Type 2 diabetes mellitus with diabetic chronic kidney disease; G47.00 Insomnia, unspecified; F39 Unspecified mood [affective] disorder; G20.A1 Parkinson's disease without dyskinesia, without mention of fluctuations; I12.9 Hypertensive chronic kidney disease with stage 1 through stage 4 chronic kidney disease, or unspecified chronic kidney disease; D64.9 Anemia, unspecified; E55.9 Vitamin D deficiency, unspecified; E78.5 Hyperlipidemia, unspecified; K59.00 Constipation, unspecified; F94.0 Selective mutism; Z53.20 Procedure and treatment not carried out because of patient's decision for unspecified reasons; Z55.9 Problems related to education and literacy, unspecified; Z59.9 Problem related to housing and economic circumstances, unspecified; Z63.9 Problem related to primary support group, unspecified; Z65.3 Problems related to other legal circumstances; Z85.3 Personal history of malignant neoplasm of breast; Z88.3 Allergy status to other anti-infective agents; Z91.148 Patient's other noncompliance with medication regimen for other reason; Z59.71 Insufficient health insurance coverage
CPT/HCPCS: 70450; 71046; 73521; 76770; 80048; 80053; 80061; 80164; 80173; 81001; 81003; 82140; 82306; 82436; 83036; 83735; 83970; 84100; 84439; 84443; 85025; 86592; 87081; 87086; 87186; 93005; G0378; J1200; J1630; J1631; J2060; 36415-L1; 36415-TC

== ENCOUNTER 2024-08-03 11:02 | Emergency (ER) | payer OTHER, MEDICAID ==
[~2024-08-03] VITALS: Ht 152.4 cm; Wt 50.0 kg
[~2024-08-03 11:02] MED LIST changes: -ATOR10TA PO; -CLON1PAT13 TD; -DIVA-112 PO; -HALO10TA21 PO; -HALO5VIA16 IM; -LITH300C3 PO; -LURA60TA PO; -RISP3TAB35 PO
[2024-08-03 11:09] VITALS: BP 147/86; PULSE 97; RESP 20; TEMP 97.8; O2SAT 97
[2024-08-03 11:46] LABS: GLUCOMETER DEV NAME(LOC) ERT.6; GLUCOSE,POINT OF CARE 136 MG/DL (70-110)
[2024-08-21 06:07] LABS: HEPATITIS C AB (EIA) Non Reactive (Non Reactive)
== END 2024-08-03 12:30 | disposition home or self-care (01) ==
LOC: EMS 11:02
DX: F25.9 Schizoaffective disorder, unspecified (principal); G83.5 Locked-in state; F03.90 Unspecified dementia, unspecified severity, without behavioral disturbance, psychotic disturbance, mood disturbance, and anxiety; F41.9 Anxiety disorder, unspecified; M19.90 Unspecified osteoarthritis, unspecified site; E78.00 Pure hypercholesterolemia, unspecified; I10 Essential (primary) hypertension; Z88.2 Allergy status to sulfonamides; Z88.1 Allergy status to other antibiotic agents
CPT/HCPCS: 70450; 82962; 84460; 86706; 86803; 87340; 99285